=== PATIENT | female | born 1950 | race Caucasian/White ===

== ENCOUNTER 2017-09-22 15:00 | Inpatient (IN) | payer MEDICARE ==
[2017-09-22 14:01] VITALS: BMI 43.9
[2017-09-25] MEDS ORDERED: Sodium Chloride 0.9% 10 ML ONE (06:27)
[2017-09-25] MEDS ORDERED: Clindamycin/D5W 900 mg/50 ml Premix Bag ONE (06:30)
[2017-09-25] MEDS ORDERED: Levofloxacin 500 mg/D5W 100 ml Premix Bag ONE (06:30)
[2017-09-25 06:46] LABS: #Basophils 0.1 thou/uL (0.0-0.2); #Eosinphils 0.2 thou/uL (0.0-0.7); #Monocytes 0.7 thou/uL (0.11-0.59); #Neutrophils 3.7 thou/uL (1.40-6.50); %Basophils 1.1 % (0.0-1.0); %Eosinophils 2.1 % (0.0-10.0); %Lymphocytes 39.8 % (21.0-51.0); %Monocytes 8.6 % (0.0-10.0); Hematocrit 50.8 % (36.0-47.0); Mean Platelet Volume 7.4 fL (7.4-10.4); Red Blood Cell (RBC) Count 5.11 mill/uL (4.20-5.40); White Blood Cell (WBC) Count 7.5 thou/uL (4.8-10.8)
[2017-09-25 06:59] LABS: Anion Gap 12 mmol/L (10-20); BUN (Urea Nitrogen) 17 mg/dL (9.8-20.1); Calc. Creatinine Clearance 80 mL/min (70-130); Calcium 9.3 mg/dL (7.8-10.44); Carbon Dioxide 31 mmol/L (23-31); Chloride 101 mmol/L (98-107); Estimated GFR-MDRD 42
[2017-09-25] MEDS ORDERED: Fentanyl 250 MCG/5 ML VIAL ONE (07:18)
--- NOTE | 2017-09-25 08:30 | OP ---
DATE OF PROCEDURE: 09/25/2017 SURGEON: Erik Solis M.D. POLICE SERGEANT: Maximiliano Zhao PROCEDURES: Removal of hardware L5-S1, exploration, spinal fusion L5-S1, L4-5 laminectomy, posterola teral arthrodesis L4-S1, demineralized bone matrix, local morselized autograft, and pedicle screw ins trumentation L4-S1. DESCRIPTION OF PROCEDURE: The patient was brought into the operating room, intubated. She was froylan d in the prone position on gel-filled chest rolls. The previous incision was reopened and extended s uperiorly. We identified the prior hardware and removed the nuts and rods. The spinal fusion was ex plored. I could not confirm whether it was solid. We next placed pedicle screws at L4 bilaterally u sing lateral fluoroscopic guidance. A bridget was secured between L4, L5 and S1 bilaterally. A combinat ion of demineralized bone matrix and local morselized autograft was laid over the L4 through S1 omid ar and posterolateral surfaces for the purpose of arthrodesis. Vancomycin powder was applied and the wound was closed in anatomic layers.
[2017-09-25] MEDS ORDERED: Albuterol Sulfate 1.25 MG/3 ML NEB ONE ×2 (08:44)
[2017-09-25] MEDS ORDERED: Fentanyl 100 MCG/2 ML VIAL ONE (09:03)
[2017-09-25] MEDS ORDERED: FLU VACC TS2017-18 (>65YR) 0.5 ML SYRINGE IM ONE (10:45)
[2017-09-25] MEDS ORDERED: Albuterol Sulfate 1.25 MG/3 ML NEB NEB PRN (11:18)
[2017-09-25] MEDS ORDERED: Cyclobenzaprine 10 MG TAB PO PRN (11:19)
[2017-09-25] MEDS ORDERED: traMADol HCl 50 MG TAB PO PRN (11:21)
[2017-09-25] MEDS ORDERED: PROVENTIL INHALER 6.7 G (200 INHALATIONS) INH PRN (11:24)
[2017-09-25] MEDS ORDERED: HYDROcodone/Acetaminophen 10/325 mg Tablet PO PRN (11:30)
[2017-09-25] MEDS ORDERED: Milk Of Magnesia 30 ML UDCUP PO PRN (11:30)
[2017-09-25] MEDS ORDERED: tiZANidine HCl 4 MG TAB PO PRN (11:30)
[2017-09-25] MEDS ORDERED: Promethazine HCl 25 MG/ML VIAL IM PRN (11:30)
[2017-09-25] MEDS ORDERED: Promethazine 25 MG TAB PO PRN (11:30)
[2017-09-25] MEDS ORDERED: Mag-Al 1200 mg/1200 mg/30 ML UDCUP PO PRN (11:30)
[2017-09-25] MEDS ORDERED: Promethazine HCl 12.5 MG SUPP PR PRN (11:30)
[2017-09-25] MEDS ORDERED: Morphine 2 mg/2ml in 0.9% NaCl PF SYRINGE SLOW IVP PRN (11:31)
[2017-09-25] MEDS ORDERED: Morphine 4 MG/ML VIAL SLOW IVP PRN (11:32)
[2017-09-25] MEDS: Sodium Chloride 0.9% 1,000 ML IV SCH (11:47)
[2017-09-25] MEDS: HYDROcodone/Acetaminophen 10/325 mg Tablet PO PRN ×2 (11:54→16:33)
[2017-09-25] MEDS: Dicyclomine 20 MG TAB PO SCH ×3 (12:01→21:48)
[2017-09-25] MEDS: Ketorolac Tromethamine 30 MG/ML VIAL IVP SCH ×3 (12:01→23:25)
--- NOTE | 2017-09-25 13:49 | CON ---
DATE OF CONSULTATION: 09/25/2017 REASON FOR CONSULTATION: Medical management. HISTORY OF PRESENT ILLNESS: This is a 67-year-old female patient with a long history of chronic back pain, status post spinal fusion, laminectomy who presented with worsening back pain. She has been f ollowed by Dr. Whitehead for several months for management of her pain. He was suspicious for a fail ure of her effusion and was sent to Dr. Solis for evaluation and Dr. Solis felt like she needed a removal of hardware and revision of her fusion. She tolerated the procedure well as had an uneven tful postoperative period. PAST MEDICAL HISTORY: History of breast cancer, no chemo, status post mastectomy implants, history o f longstanding COPD followed by Dr. Carvajal, history of chronic pancreatitis which is stable, gastroeso phageal reflux disease, hyperlipidemia, past history of pulmonary embolism, colitis, fibromyalgia, re cently quit smoking. PAST SURGICAL HISTORY: History of back surgery x2 in 2010, most recently today with a revision of osmar mbar fusion, colonoscopy in 2008, EGD in 2008, hysterectomy in 1974, mastectomy with silicone implant s in 1979, implant removal with saline implant placement in 1995, cholecystectomy in 1995, thyroid bi opsy in 1999, cataract removal in 2013. MEDICATIONS: Include: 1. Protonix 40 mg p.r.n. 2. Klonopin 1 mg b.i.d. p.r.n. 3. Bentyl 20 mg p.r.n. irritable bowel. 4. Gabapentin 600 mg 1-2 t.i.d. p.r.n. 5. Ventolin inhaler p.r.n. 6. Synthroid 175 mcg daily. 7. Vitamin D daily. 8. Tramadol p.r.n. pain. 9. Zoloft 50 mg daily. 10. Prednisone p.r.n. 11. Spironolactone p.r.n. 12. Pulmicort inhaler. 13. Cyclobenzaprine 10 mg at bedtime p.r.n. pain. ALLERGIES: PENICILLIN, and CODEINE. FAMILY HISTORY: Father at 55 from melanoma. Mother with Alzheimer's dementia. Has sibling s positive for melanoma. SOCIAL HISTORY: She is with children. She quit smoking about 3-4 weeks ago after smoking fo r over 50 years. Rare alcohol use. No drug use. Lives at home with her and mother. REVIEW OF SYSTEMS: As per the history of present illness. General: She denies any recent fevers or chills. She states she feels much better since quitting smoking. HEENT: No headache, visual or he aring changes. Cardiac: Denies chest pain, shortness of breath or palpitations. Pulmonary: Denies cough or hemoptysis. She is feeling much better since she quit smoking. Gastrointestinal: Denies nausea, vomiting, abdominal pain, melena, hematochezia. Genitourinary: De nies dysuria or hematuria. Neurologic: No weakness, seizures, or syncope. PHYSICAL EXAMINATION: VITAL SIGNS: Temperature 97.6, pulse 87 and regular, respirations 20, blood pressure has remained st able per nursing. Pulse oximetry is 95% on 3 liters. GENERAL: She is awake and alert, in no acute distress. Speech is clear. NECK: Supple. Mucosa is moist. HEART: Regular rate and rhythm. LUNGS: Distant but no wheeze, rales or rhonchi. ABDOMEN: Obese, soft, nontender, nondistended. No hepatosplenomegaly. EXTREMITIES: No clubbing, cyanosis or edema. A 2+ peripheral pulses bilaterally. NEUROLOGIC: Cranial nerves II through XII are grossly intact. She moves all extremities. LABORATORY DATA: White blood cell count 7,500, hemoglobin and hematocrit are 16.1 and 50.8 with macr ocytic indices, platelets 238. Sodium 140, potassium 4.4, chloride 101, CO2 of 31, BUN and creatinin e are 17 and 1.27 with a GFR of 42, serum glucose 129, calcium 93. ASSESSMENT AND PLAN: This is a 67-year-old female with longstanding back pain status post lumbar fus ion and now status post removal of hardware from L5-S1, spinal fusion of L5-S1 and L4-L5 laminectomy, pedicle screw instrumentation from L4-S1. The patient tolerated well the postoperative plan as per Dr. Solis and his team. 1. Chronic obstructive pulmonary disease. We will continue albuterol nebs p.r.n. as well as albuter ol inhaler p.r.n. 2. Irritable bowel syndrome/fibromyalgia. We will continue dicyclomine and cyclobenzaprine p.r.n. 3. Chronic pain, stable on gabapentin. Pain medications per Neurosurgery team. 4. Hypothyroidism. We will continue thyroid replacement and monitor. 5. History of anxiety and depression, stable on sertraline.
[2017-09-25] MEDS: Clindamycin/D5W 900 MG in Premix Bag 1 BAG IVPB SCH ×2 (14:02→21:47)
[2017-09-25] MEDS: Gabapentin 300 MG CAP PO SCH ×2 (14:03→21:48)
[2017-09-25] MEDS ORDERED: Propofol 200 MG/20 ML VIAL ONE (15:35)
[2017-09-25] MEDS ORDERED: Ondansetron HCl/PF 4 MG/2 ML Vial ONE (15:35)
[2017-09-25] MEDS ORDERED: Glycopyrrolate 0.2 MG/ML 5 ML SYRINGE ONE (15:35)
[2017-09-25] MEDS ORDERED: Ketorolac Tromethamine 30 MG/ML VIAL ONE (15:35)
[2017-09-25] MEDS ORDERED: Dexamethasone 20 MG/5 ML VIAL ONE (15:35)
[2017-09-25] MEDS ORDERED: Lidocaine 1% PF 5 ML VIAL ONE (15:35)
[2017-09-25] MEDS ORDERED: BUPRENORPHINE 150 MCG FS SCH (21:00)
[2017-09-25] MEDS: Famotidine 20 MG TAB PO SCH (21:47)
[2017-09-26] MEDS: Sodium Chloride 0.9% 1,000 ML IV SCH (00:58)
[2017-09-26] MEDS ORDERED: Levothyroxine Sodium 50 MCG TAB PO SCH (06:00)
[2017-09-26] MEDS: Ketorolac Tromethamine 30 MG/ML VIAL IVP SCH (06:07)
[2017-09-26 08:17] VITALS: BP 119/50; TEMP 98.1
--- NOTE | 2017-09-26 08:41 | PRG ---
DATE OF SERVICE: 09/26/2017 Postop day #1, status post removal of lumbar hardware, spinal fusion of L5-S1, L4-L5 laminectomy SUBJECTIVE: The patient is feeling better. She had some episodes of low blood pressure last night w hich has improved. She is ambulating in the hallway, improved pain management. Denies chest pain, s hortness of breath or palpitations. OBJECTIVE: VITAL SIGNS: Temperature 97.9, pulse of 82, respirations 18, blood pressure 109/75, pulse ox is 92% on 2 liters. GENERAL: She is awake and alert, in no acute distress. Speech is clear. No conversational dyspnea. NECK: Supple. HEART: Regular rate and rhythm. LUNGS: Clear. Decreased breath sounds. No wheeze, rales or rhonchi. ABDOMEN: Obese, soft. EXTREMITIES: With no edema. LABORATORY DATA: Reviewed yesterday. ASSESSMENT AND PLAN: This is a 67-year-old female with longstanding back pain who is now status pos t lumbar surgical repair. She tolerated the surgery and postoperative period well. She is ambulatin g in the hallway. Per patient, she has been planning on to be discharged home today per Dr. Solis 's team. 1. Lumbar back pain status post back surgery. Further plan per Dr. Solis's team. 2. Chronic obstructive pulmonary disease. We will continue albuterol nebs and oral steroids. Will attempt to wean off the steroids as an outpatient now that she has quit smoking. 3. Irritable bowel syndrome/fibromyalgia. We will continue oral medicines. 4. Hypotension, possibly anesthesia effect, we will continue to monitor as an outpatient. Will hold her Lasix for low blood pressure readings. 5. Acute renal injury. We will recheck as an outpatient, increase her fluid intake. 6. Chronic back pain. Continue gabapentin. Follow up with Dr. Whitehead. 7. History of anxiety and depression is stable on her oral meds. DISPOSITION: I agree with discharge as per Surgery and will follow up as an outpatient.
[2017-09-26] MEDS ORDERED: Furosemide 40 MG TAB PO SCH ×2 (09:00)
[2017-09-26] MEDS ORDERED: predniSONE 20 MG TAB PO SCH (09:00)
[2017-09-26] MEDS: Dicyclomine 20 MG TAB PO SCH (09:17)
[2017-09-26] MEDS: Gabapentin 300 MG CAP PO SCH (09:18)
[2017-09-26] MEDS: Famotidine 20 MG TAB PO SCH (09:18)
--- NOTE | 2017-10-14 13:14 | EKG ---
Test Reason : PREOP Blood Pressure : / mmHG Vent. Rate : 081 BPM Atrial Rate : 081 BPM P-R Int : 138 ms QRS Dur : 086 ms QT Int : 384 ms P-R-T Axes : 057 090 071 degrees QTc Int : 446 ms Normal sinus rhythm Rightward axis Borderline ECG Confirmed by AARON REEDER MD ([id number] on 10/14/2017 1:14:09 PM Referred By: ZAIRA Confirmed By:AARON REEDER MD
== END 2017-09-26 11:30 | disposition home or self-care (01) | DRG 460 ==
LOC: SURG A 09-25 05:39 → SURG B 09-25 09:31
PROVIDERS: ADMIT Neurological Surgery; ATTEND Neurological Surgery
PROC: 0SG0071 Fusion of Lumbar Vertebral Joint with Autologous Tissue Substitute, Posterior Approach, Posterior Column, Open Approach (ICD-10-PCS; principal; 2017-09-25)
PROC: 0SG3071 Fusion of Lumbosacral Joint with Autologous Tissue Substitute, Posterior Approach, Posterior Column, Open Approach (ICD-10-PCS; 2017-09-25)
PROC: 0SP304Z Removal of Internal Fixation Device from Lumbosacral Joint, Open Approach (ICD-10-PCS; 2017-09-25)
DX: M43.16 Spondylolisthesis, lumbar region (principal); N17.9 Acute kidney failure, unspecified; M96.0 Pseudarthrosis after fusion or arthrodesis; Z68.41 Body mass index [BMI] 40.0-44.9, adult; J44.9 Chronic obstructive pulmonary disease, unspecified; K58.9 Irritable bowel syndrome, unspecified; M79.7 Fibromyalgia; I95.2 Hypotension due to drugs; T41.205A Adverse effect of unspecified general anesthetics, initial encounter; F41.9 Anxiety disorder, unspecified; F32.9 Major depressive disorder, single episode, unspecified; Z87.891 Personal history of nicotine dependence; K21.9 Gastro-esophageal reflux disease without esophagitis; E78.5 Hyperlipidemia, unspecified; Z86.711 Personal history of pulmonary embolism; E66.9 Obesity, unspecified
CPT/HCPCS: 36415; 76001; 80048; 85025; 93005; 93010; A4216; C1713; C1768; J1100; J1885; J1956; J2001; J2405; J2704; J3010; J3370; J3490; J7506; J7620

== ENCOUNTER 2017-10-03 14:51 | Emergency (ER) | payer MEDICARE ==
--- NOTE | 2017-10-03 15:49 | ULT ---
EXAM: LEFT LOWER EXTREMITY VENOUS ULTRASOUND WITH DOPPLER 10/03/17 HISTORY: Erythema. Swelling. Previous surgery. COMPARISON: 01/27/15. TECHNIQUE: Hernandez scale, color flow, doppler imaging with spectral waveform analysis performed in the left lower e xtremity venous system. FINDINGS: There is compressibility, presence of flow and augmentation in the common femoral vein, femoral vein, and popliteal vein. Flow in the greater saphenous vein, profunda vein, and posterior tibial vein. IMPRESSION: No evidence of thrombus in the left lower extremity deep venous system. POS: BOBO
[2017-10-03 16:10] LABS: #Eosinphils 0.2 thou/uL (0.0-0.7); #Lymphocytes 1.8 thou/uL (1.20-3.40); #Monocytes 0.9 thou/uL (0.11-0.59); #Neutrophils 4.6 thou/uL (1.40-6.50); %Basophils 0.3 % (0.0-1.0); %Eosinophils 2.4 % (0.0-10.0); %Lymphocytes 24.5 % (21.0-51.0); %Monocytes 11.8 % (0.0-10.0); Hematocrit 41.8 % (36.0-47.0); Mean Platelet Volume 7.3 fL (7.4-10.4); Red Blood Cell (RBC) Count 4.23 mill/uL (4.20-5.40); White Blood Cell (WBC) Count 7.5 thou/uL (4.8-10.8)
[2017-10-03 16:33] LABS: ALT (SGPT) 19 U/L (8-55); AST (SGOT) 23 U/L (5-34); Alkaline Phosphatase 59 U/L (40-150); Anion Gap 16 mmol/L (10-20); BUN (Urea Nitrogen) 14 mg/dL (9.8-20.1); Bilirubin, Total 0.8 mg/dL (0.2-1.2); Calc. Creatinine Clearance 0 mL/min (70-130); Calcium 9.1 mg/dL (7.8-10.44); Carbon Dioxide 31 mmol/L (23-31); Chloride 94 mmol/L (98-107); Estimated GFR-MDRD 52; Globulin 3.4 g/dL (2.4-3.5); Protein, Total 7.1 g/dL (6.0-8.3)
[2017-10-03] MEDS ORDERED: Ondansetron HCl/PF 4 MG/2 ML Vial ONE (17:11)
[2017-10-03] MEDS ORDERED: Morphine 4 MG/ML VIAL ONE (17:11)
== END 2017-10-03 19:28 | disposition home or self-care (01) ==
LOC: ERS 14:51
DX: L03.116 Cellulitis of left lower limb (principal); J44.9 Chronic obstructive pulmonary disease, unspecified; F41.9 Anxiety disorder, unspecified; F17.210 Nicotine dependence, cigarettes, uncomplicated
CPT/HCPCS: 36415; 80053; 85025; 85379; 96374; 96375; J2270; J2405

== ENCOUNTER 2017-10-09 16:10 | Inpatient (IN) | payer MEDICARE ==
[2017-10-09 17:43] LABS: #Eosinphils 0.3 thou/uL (0.0-0.7); #Lymphocytes 1.9 thou/uL (1.20-3.40); #Monocytes 0.7 thou/uL (0.11-0.59); #Neutrophils 3.5 thou/uL (1.40-6.50); %Basophils 0.7 % (0.0-1.0); %Eosinophils 4.4 % (0.0-10.0); %Lymphocytes 29.2 % (21.0-51.0); %Monocytes 11.3 % (0.0-10.0); %Neutrophils 54.3 % (42.0-75.0); Hemoglobin 12.9 g/dL (12.0-16.0); Mean Corpuscular HGB CONC 31.9 g/dL (32.0-36.0); Mean Corpuscular Hemoglobin 31.4 pg (27.0-31.0); Mean Corpuscular Volume 98.7 fl (81.0-99.0); Platelet Count 250 thou/uL (130-400); Red Blood Cell (RBC) Count 4.09 mill/uL (4.20-5.40); White Blood Cell (WBC) Count 6.4 thou/uL (4.8-10.8)
[2017-10-09] MEDS ORDERED: Clindamycin/D5W 900 MG in Premix Bag 1 BAG IVPB SCH (17:45)
[2017-10-09] MEDS ORDERED: Clindamycin/D5W 900 mg/50 ml Premix Bag ONE (17:47)
[2017-10-09 17:50] LABS: ALT (SGPT) 20 U/L (8-55); AST (SGOT) 27 U/L (5-34); Albumin 3.6 g/dL (3.4-4.8); Alkaline Phosphatase 62 U/L (40-150); Anion Gap 15 mmol/L (10-20); BUN (Urea Nitrogen) 19 mg/dL (9.8-20.1); Bilirubin, Total 0.5 mg/dL (0.2-1.2); Calc. Creatinine Clearance 0 mL/min (70-130); Carbon Dioxide 28 mmol/L (23-31); Chloride 100 mmol/L (98-107); Estimated GFR-MDRD 34; Globulin 2.8 g/dL (2.4-3.5); Glucose 107 mg/dL (80-115); Potassium 4.4 mmol/L (3.5-5.1); Protein, Total 6.4 g/dL (6.0-8.3); Sodium 139 mmol/L (136-145)
[2017-10-09 17:55] LABS: Bilirubin Negative (Negative); Blood, Urine Negative (Negative); Clarity CLEAR (Clear); Glucose, Urine (Dipstick) Negative (Negative); Leukocyte Negative (Negative); Nitrite Negative (Negative); Protein, Urine (Dipstick) Negative (Neg-Trace); Urobilinogen 0.2 mg/dL (0.2-1.0)
[2017-10-09] MEDS ORDERED: HYDROcodone/Acetaminophen 10/325 mg Tablet ONE (18:03)
--- NOTE | 2017-10-09 20:01 | ULT ---
LEFT LOWER EXTREMITY VENOUS DUPLEX ULTRASOUND INCLUDING COLOR AND SPECTRAL DOPPLER IMAGING: History: 67-year-old female with left lower extremity edema, pain, and redness. Comparison: 10-03-17 FINDINGS: Exam performed from groin to ankle including visualized greater saphenous, common femoral, superficia l femoral, profunda femoral, popliteal, trifurcation and posterior tibial vein regions. There is phas ic flow at all levels with normal compressibility and normal augmentation. No intraluminal thrombus. IMPRESSION: No evidence for deep venous thrombosis. POS: BOBO
[2017-10-09 20:47] VITALS: BMI 43.1
[2017-10-09] MEDS ORDERED: HYDROcodone/Acetaminophen 10/325 mg Tablet PO PRN (22:06)
[2017-10-09] MEDS ORDERED: Gabapentin 400 MG CAP PO SCH (22:15)
[2017-10-09] MEDS: Dextrose 5%-Lactated Ringers 1,000 ML IV SCH (22:32)
[2017-10-09] MEDS: clonazePAM 1 MG TAB PO PRN (22:44)
[2017-10-10] MEDS: Clindamycin/D5W 900 MG in Premix Bag 1 BAG IVPB SCH ×3 (03:02→17:58)
[2017-10-10 06:11] LABS: #Basophils 0.1 thou/uL (0.0-0.2); #Eosinphils 0.3 thou/uL (0.0-0.7); #Monocytes 0.7 thou/uL (0.11-0.59); #Neutrophils 2.8 thou/uL (1.40-6.50); %Basophils 0.9 % (0.0-1.0); %Eosinophils 4.4 % (0.0-10.0); %Lymphocytes 34.6 % (21.0-51.0); %Monocytes 11.8 % (0.0-10.0); %Neutrophils 48.2 % (42.0-75.0); Hemoglobin 12.5 g/dL (12.0-16.0); Mean Corpuscular HGB CONC 31.5 g/dL (32.0-36.0); Mean Corpuscular Hemoglobin 31.5 pg (27.0-31.0); Mean Corpuscular Volume 99.9 fl (81.0-99.0); Mean Platelet Volume 7.6 fL (7.4-10.4); Platelet Count 229 thou/uL (130-400); RBC Distribution Width 13.5 % (11.5-14.5); Red Blood Cell (RBC) Count 3.97 mill/uL (4.20-5.40); White Blood Cell (WBC) Count 5.9 thou/uL (4.8-10.8)
[2017-10-10] MEDS: Gabapentin 400 MG CAP PO SCH ×3 (06:20→21:44)
[2017-10-10] MEDS: Levothyroxine Sodium 175 MCG TAB PO SCH (06:20)
[2017-10-10 06:25] LABS: Anion Gap 14 mmol/L (10-20); BUN (Urea Nitrogen) 15 mg/dL (9.8-20.1); CRP (Inflammatory) 3.58 mg/dL (= or < 0.5); Calc. Creatinine Clearance 78 mL/min (70-130); Calcium 8.7 mg/dL (7.8-10.44); Carbon Dioxide 27 mmol/L (23-31); Chloride 101 mmol/L (98-107); Estimated GFR-MDRD 42; Glucose 113 mg/dL (80-115); Potassium 4.6 mmol/L (3.5-5.1); Sodium 137 mmol/L (136-145)
--- NOTE | 2017-10-10 06:36 | HP ---
DATE OF ADMISSION: 10/09/2017 CHIEF COMPLAINT: Left leg redness and worsening edema. HISTORY OF PRESENT ILLNESS: This is a 67-year-old female patient of Dr. Oc Villagomez, wh o has a known history of lymphedema and 2 weeks ago had an L4 laminectomy done here at the hospital a nd at that time had a small area of redness, may be a little scratch on the top of her left foot. Si nce that time the area had become more red and more swollen and she has had a couple of rounds of Candi trim as an outpatient. She has been to the emergency room twice for further evaluation. She saw Dr. Villagomez on Monday, this last week, and he told her if this got worse, she was to come back to the e mergency room, to be admitted. So, she came by today. Other workup today included an ultrasound ann t was negative for DVT. PAST MEDICAL HISTORY: Positive for history of breast cancer, she had a mastectomy, but no chemo or r adiation. Past history also includes COPD, GERD, hypertension, hyperlipidemia, PE in the past, histo ry IBS, fibromyalgia and also the spondylolisthesis, that was treated by surgery here a couple of wee ks ago. She has morbid obesity and hypothyroidism. PAST SURGICAL HISTORY: L4 laminectomy in 2 weeks ago, cataract in 2013, breast implant removal in , laparoscopic cholecystectomy in 1995, modified radical mastectomy in 1979 and also TAHBSO in 1974 . ALLERGIES: PENICILLIN and CODEINE. MEDICATIONS: Neurontin 1200 mg q.8 hours, which was max dose; Flexeril 10 mg daily p.r.n., but I thi nk she takes almost daily; [place] since the back surgery, she is on [place] 10 at least once a day; Zolo ft 50 mg daily; Protonix 40 mg daily. She gets spironolactone 25 mg daily, Xopenex nebs q.6 hours, P ulmicort inhalation 180 mg b.i.d. She is on oral vitamin D3 tablet, Synthroid 175 mcg daily, Bentyl p.r.n. for IBS flare. She also has p.r.n. clonidine for anxiety flare. FAMILY HISTORY: Father , had a melanoma. Mother is still alive and has Alzheimer's. She has a sibling that also has melanoma. SOCIAL HISTORY: She is , is retired. Has smoked since she was a teenager and states that she quit about 6 weeks ago, was tried many times in the past, currently on vap cigarette. Denies any il legal drug use history, drinks rarely. She currently lives with her spouse, her mother and her grand son. REVIEW OF SYSTEMS: She denies any headache, fevers or chills. Denies any changes in vision or chewi ng or swallowing and noted no problems with talking. Denies any chest pain, shortness of breath, hem optysis. No nausea, vomiting or hematemesis. No changes in bowel or bladder habits. No dysuria or hematuria. Denies any paresis or paresthesias. Denies any homicidal or suicidal ideations, auditory or visual hallucinations. PHYSICAL EXAMINATION: GENERAL: She is sitting up calmly in the bed and is very cooperative, no acute distress. VITAL SIGNS: Temperature is 97.6, pulse 87, respirations are 20, satting 88% on room air, blood pres sure is 122/74. HEENT: Shows normocephalic and atraumatic cranium with pupils that are equal, round, and reactive to light and accommodation. Extraocular movements are intact. Mucous membranes are moist. NECK: Supple, no JVD, no bruits, no thyromegaly. LUNGS: Distant sounding, but no rales, rhonchi or wheezes. HEART: S1, S2, with no rubs, murmurs, or gallops. ABDOMEN: Obese, very difficult exam to glean anything from it; it is nontender. GENITOURINARY: Deferred. EXTREMITIES: Left lower extremity with an obvious horizontal marked anterior line across the mid beryl f that is not completely circumferential, it is about 75% anteriorly. There is also obvious erythema and edema, which is about 2+ edema anteriorly, possibly the beginning of a small 2 cm bulla in the c enter of this patch of erythema. I did extend it down across her ankle and under her feet. The feet are darker color of red. The skin is dry and thickened. Pulses are 1+ to the left foot, 2+ in the right foot. There are no neuromuscular deficits. No sensation deficits. No motor deficits. NEUROLOGIC: She is alert and oriented x4. Cranial nerves II-XII are equal and symmetrical. LABORATORY AND X-RAY FINDINGS: White count 6.4, H&H are 12.9 and 40.4 respectively with 250,000 plat elets. D-dimer slightly elevated at 1.29. Sodium 139, potassium 4.4, chloride 100, bicarbonate 28, BUN 19, creatinine 1.5 with a GFR of 34, glucose of 107. ASSESSMENT AND PLAN: Cellulitis, currently unknown etiology, possible recent direct skin trauma that has gotten worse. She failed outpatient antibiotics. She also has evidently chronic renal insuffic iency. We will treat with antibiotics. We will also continue her nebs and her home medicines and we will follow accordingly. Hopefully, plan to discharge her home in a couple of days. Dr. Hernando montague assume care when he is back from being out of town.
[2017-10-10] MEDS: Spironolactone 25 MG TAB PO SCH (08:04)
[2017-10-10] MEDS: Dextrose 5%-Lactated Ringers 1,000 ML IV SCH ×2 (08:04→18:01)
[2017-10-10] MEDS: HYDROcodone/Acetaminophen 10/325 mg Tablet PO PRN (19:44)
[2017-10-10] MEDS: Cyclobenzaprine 10 MG TAB PO PRN (19:44)
[2017-10-10] MEDS: clonazePAM 1 MG TAB PO PRN (19:50)
[2017-10-10] MEDS: Mometasone Furoate 120 PUFF 220 MCG INH SCH (20:25)
[2017-10-11] MEDS: HYDROcodone/Acetaminophen 10/325 mg Tablet PO PRN ×3 (03:32→20:36)
[2017-10-11] MEDS: Clindamycin/D5W 900 MG in Premix Bag 1 BAG IVPB SCH ×2 (03:34→09:57)
[2017-10-11] MEDS: Gabapentin 400 MG CAP PO SCH ×3 (04:38→20:36)
[2017-10-11] MEDS: Cyclobenzaprine 10 MG TAB PO PRN ×2 (04:38→16:07)
[2017-10-11] MEDS: Levothyroxine Sodium 175 MCG TAB PO SCH (04:38)
[2017-10-11 05:02] LABS: #Eosinphils 0.2 thou/uL (0.0-0.7); #Lymphocytes 1.6 thou/uL (1.20-3.40); #Monocytes 0.5 thou/uL (0.11-0.59); #Neutrophils 5.1 thou/uL (1.40-6.50); %Basophils 0.4 % (0.0-1.0); %Eosinophils 3.1 % (0.0-10.0); %Lymphocytes 21.7 % (21.0-51.0); %Monocytes 7.1 % (0.0-10.0); %Neutrophils 67.7 % (42.0-75.0); Hemoglobin 12.6 g/dL (12.0-16.0); Mean Corpuscular HGB CONC 32.7 g/dL (32.0-36.0); Mean Corpuscular Hemoglobin 32.6 pg (27.0-31.0); Mean Corpuscular Volume 99.9 fl (81.0-99.0); Mean Platelet Volume 7.4 fL (7.4-10.4); Platelet Count 262 thou/uL (130-400); RBC Distribution Width 13.2 % (11.5-14.5); Red Blood Cell (RBC) Count 3.87 mill/uL (4.20-5.40); White Blood Cell (WBC) Count 7.5 thou/uL (4.8-10.8)
[2017-10-11 05:50] LABS: Anion Gap 11 mmol/L (10-20); BUN (Urea Nitrogen) 13 mg/dL (9.8-20.1); CRP (Inflammatory) 3.08 mg/dL (= or < 0.5); Calc. Creatinine Clearance 100 mL/min (70-130); Calcium 9.4 mg/dL (7.8-10.44); Carbon Dioxide 34 mmol/L (23-31); Chloride 100 mmol/L (98-107); Estimated GFR-MDRD 55; Glucose 109 mg/dL (80-115); Potassium 4.3 mmol/L (3.5-5.1); Sodium 141 mmol/L (136-145)
[2017-10-11] MEDS: Dextrose 5%-Lactated Ringers 1,000 ML IV SCH (06:02)
--- NOTE | 2017-10-11 08:01 | PRG ---
DATE OF SERVICE: 10/11/2017 SUBJECTIVE: The patient continues to have pain in both of her feet, continues to have swelling bilat erally. Venous Dopplers have been negative. She denies chest pain or shortness of breath, denies fe vers or chills. She had a poor night sleep last night due to her pain in both legs. OBJECTIVE: VITAL SIGNS: Temperature 97.8, pulse of 92, respirations 20, blood pressure 135/70, pulse ox is 96% on 2 liters. GENERAL: She is awake and alert, in no acute distress. Morbidly obese. NECK: Supple. HEART: Regular rate and rhythm. LUNGS: With decreased breath sounds, occasional wheeze, but no rales or rhonchi. ABDOMEN: Obese. EXTREMITIES: With 2-3+ edema bilaterally, definite demarcation of extreme redness on her left lower extremity to her mid-toledo and 1+ peripheral pulses bilaterally. LABORATORY DATA: White blood cell count 7,500, hemoglobin and hematocrit are 12.6 and 38.6, platelet s of 262. D-dimer on admission was elevated at 1.29. Sodium 141, potassium 4.3, chloride 100, CO2 o f 34, BUN and creatinine are 13 and 1.00 with a GFR of 55. C-reactive protein down to 3.08. Blood c ultures have been negative so far. Venous Doppler was negative. ASSESSMENT AND PLAN: This is a 67-year-old female patient with a history of chronic obstructive pulm onary disease, recently quit smoking, history of fibromyalgia [facility]. She failed outpatient therapy with both clindamycin and Bactrim. She has been started on vancomycin and IV clindamycin with minimal improvement so far, it appears t o be strep erysipelas. We will continue clindamycin and vancomycin at this time and consult Dr. Mohinder stauffer for evaluation and assistance with antibiotic choice. 1. Chronic obstructive pulmonary disease. We will continue her nebs and inhalants. 2. Fibromyalgia, chronic pain, stable at this time.
[2017-10-11] MEDS: Spironolactone 25 MG TAB PO SCH (08:12)
[2017-10-11] MEDS: Enoxaparin Sodium 40 MG/0.4 ML SYRINGE SC SCH (09:58)
[2017-10-11 11:28] LABS: Vancomycin, Trough 22.3 ug/mL
[2017-10-11] MEDS ORDERED: Vancomycin HCl 1.75 GM in Sodium Chloride 0.9% 500 ML IVPB SCH (12:00)
--- NOTE | 2017-10-11 12:11 | PQF ---
CLINICAL DOCUMENTATION IMPROVEMENT CLARIFICATION FORM: ICD-10 Updated PLEASE DO AN ADDENDUM TO THE PROGRESS NOTE WITH ANY DOCUMENTATION UPDATES OR ADDITIONS AND CARRY THROUGH TO DC SUMMARY. THANK YOU. DATE: 10/11/17 ATTN: Dr. Villagomez Please exercise your independent, professional judgment in responding to the clarification form. Clinical indicators are provided on the bottom of this form for your review Please check appropriate box(s): [ ] Acute Renal Failure (ARF) / Acute Kidney Injury (CRISTAL) (Please specify associated condition, if applicable) [ ] Other Etiology or underlying conditions related to the diagnosis of ARF/ CRISTAL: [ x ] Acute on Chronic Renal Failure please specify Stage of CKD ___III ( see below) [ ] CKD without ARF/CRISTAL please specify Stage of CKD [ ] Other diagnosis [ ] Unable to determine In addition, please specify: Present on Admission (POA): [ ] Yes [ ] No [ ] Unable to determine National Kidney Foundation Guidelines for CKD Staging Stage I Kidney damage with normal or increased GFR GFR > 90 Stage II Kidney damage with mildly decreased GFR GFR 60-89 Stage III Kidney damage with moderately decreased GFR GFR 30-59 Stage IV Kidney damage with severely decreased GFR GFR 16-29 Stage V Kidney failure GFR <15 ESRD End Stage Renal Disease On dialysis For continuity of documentation, please document condition throughout progress notes and discharge summary. Thank You. CLINICAL INDICATORS - SIGNS / SYMPTOMS / LABS 10/09 10/11 LAB: CREATININE 1.52 1.00 ESTIMATED GFR 34 55 RISKS: H&P: LEFT LEG REDNESS & WORSENING EDEMA. SHE ALSO HAS EVIDENTLY CHRONIC RENAL INSUFFICIENCY. TREATMENT: ORDER: 10/09 ALDACTONE 25MG PO Q AM ORDER: CMP 10/09, ORDER: BMP 10/10, 10/11, 10/12 Thank you, Dora (This form is maintained as a part of the permanent medical record) 2015 [employer]. All Rights Reserved Dora Schwab RN, BSN [email or web address] Office: [phone] [facility]
[2017-10-11] MEDS: cefTRIAXone\\ROCEPHIN 2 GM in Sodium Chloride 0.9% 100 ML IVPB SCH (16:07)
[2017-10-11] MEDS: Mometasone Furoate 120 PUFF 220 MCG INH SCH (19:44)
--- NOTE | 2017-10-11 19:55 | CON ---
DATE OF CONSULTATION: 10/11/2017 REASON FOR CONSULTATION: Cellulitis, leg. HISTORY OF PRESENT ILLNESS: A 67-year-old who has a history of breast cancer in remission, COPD, hyp ertension, venous insufficiency, lymphedema, a recent L4 laminectomy at [facility], who deve loped cellulitis of left leg. She is admitted for management and had some pain in the right side of the abdomen going towards the right lower quadrant earlier, but that has subsided and may have been a ssociated with falling from a chair before she was admitted. No headaches. No visual symptoms, sore throat, odynophagia, dysphagia. Mild dyspnea. Cough intermittently. No sputum production. No abd ominal pain anymore. No genitourinary symptoms. No joint symptoms. No neurological symptoms. PAST MEDICAL HISTORY: Breast cancer in remission after mastectomy in the 70s, COPD, GERD, hypertensi on, hyperlipidemia, pulmonary embolism, chronic low back pain/post laminectomy recently, obesity, hyp othyroidism, venous insufficiency with lymphedema of lower extremities. PAST SURGICAL HISTORY: Includes laparoscopic cholecystectomy and hysterectomy as well and modified r adical mastectomy. ALLERGIES: PENICILLIN when she was a child, does not recall the type of reaction. MEDICATIONS: Currently, she is receiving [place], DuoNeb, IV fluids, Klonopin, Flexeril, Lovenox, Neur ontin, vancomycin as well as clindamycin. SOCIAL HISTORY: , lives in a [place], quit smoking 6 weeks prior to admission. Drinks rarel y. PHYSICAL EXAMINATION: VITAL SIGNS: Temperature max 98.4, blood pressure 111/60, pulse 95, respirations 20-22, sat 94%-96%. SKIN: Shows the area of confluent circumferential erythema around the lower segment of the left leg, sparing the foot. The surgical site is healing well. Stitches have been removed. Peripheral IV ac cess. No [place] catheter. A little bit of lymphedema in the lower abdominal segments in the wall are a. No lymphadenopathy. HEENT: Ocular movements are conjugate. Oral cavity, few teeth remaining in the bottom maxilla with significant decay and gum disease, and she has artificial dentures in the upper maxilla. Oral cavity otherwise normal. NECK: Supple. No jugular venous distention. LUNGS: With some coarse breath sounds with few rhonchi in the bases. HEART: S1, S2, tachycardic. No S3, no murmurs. ABDOMEN: Distended and not tender except for the suprapubic area, the patient refers to some tendern ess. EXTREMITIES: No joint inflammatory activity. Pulses are 1+ in dorsalis pedis. There is lymphedema and stasis edema in the lower extremities and cellulitis as described above. She is able to move ext remities with limitations due to the acute illness. NEUROLOGIC: Her cognitive function appears to be intact. LABORATORY DATA: White cell count 7.5, hemoglobin 12.6, MCV 99, platelets 262 with a normal differen tial. Sodium 141, creatinine 1.0 which is improved from admission. Liver profile normal. Albumin 3 .6, urinalysis was essentially normal. Vancomycin trough 22.3. Microbiology with 2 sets of negative blood cultures and negative urine culture. Vascular ultrasound of lower extremity which showed no e vidence of DVT. ASSESSMENT: 1. Chronic smoking with chronic obstructive pulmonary disease. 2. Venous stasis with lymphedema. 3. Cellulitis of left leg. DISCUSSION: Most cases of cellulitis of lower extremity are secondary to beta hemolytic Streptococci , about 15% of those in the [facility] tend to be resistant to clindamycin. Some cases of gram ne gative bridget cellulitis have been seen in the past as well and Staphylococcus aureus usually when it is associated with abscess formation which is not the case here. Recommend discontinuation of vancomyc in and Cleocin, switch her to Rocephin. Her history for allergies is in the long distant past and I do not think that there is any significant likelihood of reaction to cephalosporin. The duration of therapy will depend on her clinical response, but eventually hopefully soon will be able to transitio n her to oral Keflex. She will need compression stockings or suppressive dose of penicillin VK 250 m g twice daily following the completion of the acute phase of treatment which should last around 10-14 days.
[2017-10-11] MEDS: clonazePAM 1 MG TAB PO PRN (20:39)
[2017-10-11] MEDS ORDERED: Morphine 4 MG/ML VIAL IV PRN (22:45)
[2017-10-11] MEDS ORDERED: Dexamethasone 4 mg/ml Vial IM SCH (23:00)
[2017-10-12 04:33] LABS: #Lymphocytes 0.8 thou/uL (1.20-3.40); #Monocytes 0.2 thou/uL (0.11-0.59); #Neutrophils 5.5 thou/uL (1.40-6.50); %Eosinophils 0.7 % (0.0-10.0); %Lymphocytes 12.5 % (21.0-51.0); %Monocytes 2.6 % (0.0-10.0); %Neutrophils 84.1 % (42.0-75.0); Hemoglobin 12.6 g/dL (12.0-16.0); Mean Corpuscular HGB CONC 31.7 g/dL (32.0-36.0); Mean Corpuscular Hemoglobin 31.8 pg (27.0-31.0); Mean Platelet Volume 7.1 fL (7.4-10.4); Platelet Count 220 thou/uL (130-400); RBC Distribution Width 13.1 % (11.5-14.5); Red Blood Cell (RBC) Count 3.98 mill/uL (4.20-5.40); White Blood Cell (WBC) Count 6.6 thou/uL (4.8-10.8)
[2017-10-12 04:42] LABS: Anion Gap 14 mmol/L (10-20); BUN (Urea Nitrogen) 15 mg/dL (9.8-20.1); CRP (Inflammatory) 9.43 mg/dL (= or < 0.5); Calc. Creatinine Clearance 96 mL/min (70-130); Calcium 8.8 mg/dL (7.8-10.44); Carbon Dioxide 26 mmol/L (23-31); Chloride 98 mmol/L (98-107); Estimated GFR-MDRD 53; Glucose 160 mg/dL (80-115); Potassium 6.1 mmol/L (3.5-5.1); Sodium 132 mmol/L (136-145)
[2017-10-12] MEDS: Levothyroxine Sodium 175 MCG TAB PO SCH (04:58)
[2017-10-12] MEDS: Gabapentin 400 MG CAP PO SCH ×3 (04:58→20:54)
[2017-10-12] MEDS ORDERED: Furosemide 40 MG TAB PO SCH (08:00)
--- NOTE | 2017-10-12 08:27 | PRG ---
DATE OF SERVICE: 10/12/2017 SUMMARY: The patient had improved pain with pain medications last night, was given a dose of morphine, appreciates evaluation by Neurosurgery, and had mary removed with little difficulty, appreciate evaluation by Dr. Avila, who adjusted her antibiotics. She is doing some better. Denies pain in her foot or leg. Denies fevers or chills. Denies nausea and vomiting. OBJECTIVE: VITAL SIGNS: Temperature 97.5, T-max of 98.8, pulse of 71, respirations 18, blood pressure 107/67, pulse ox 94% on 2 liters. GENERAL: She is awake, alert, in no acute distress. HEENT: Mucosa is moist. NECK: Supple. HEART: Regular rate and rhythm. LUNGS: Distant, but clear. No wheezes, rales, or rhonchi. ABDOMEN: Obese. EXTREMITIES: Continues to have sharply demarcated line of bright red erythema on the left [place] with 2-3+ edema bilaterally. LABORATORY DATA: White blood cell count 6,600, hemoglobin and hematocrit 12.6 and 39.9, platelets of 220. Sodium 132, potassium 6.1, chloride 98, CO2 of 26, BUN and creatinine 15 and 1.04 with a GFR of 53. C-reactive protein is up to 9.43 today, up from 3.0 yesterday. Blood cultures remain negative after 24 hours. ASSESSMENT AND PLAN: This is a 67-year-old female patient with a history of fibromyalgia, chronic obstructive pulmonary disease, morbid obesity, who was admitted for left lower leg cellulitis, failing outpatient oral antibiotics. 1. Cellulitis. We will continue Rocephin as per Dr. Avila and monitor for improvement. Once we see some improvement, we will switch to oral antibiotics as per Dr. Avila. 2. Chronic obstructive pulmonary disease is stable. 3. Fibromyalgia with chronic pain. We will decrease the dosage of the morphine as needed due to lethargy, but we will continue for breakthrough pain. 4. Hyperkalemia. Likely medication induced. Will stop the spironolactone and give one dose of Lasix. Follow in AM. 5. Disposition: Hopefully home in the next day or two, once there is some improvement in her infection. [facility]
[2017-10-12] MEDS: Enoxaparin Sodium 40 MG/0.4 ML SYRINGE SC SCH (08:41)
[2017-10-12] MEDS: Morphine 4 MG/ML VIAL IV PRN ×2 (14:34→20:59)
[2017-10-12] MEDS: cefTRIAXone\\ROCEPHIN 2 GM in Sodium Chloride 0.9% 100 ML IVPB SCH (15:42)
[2017-10-12] MEDS: HYDROcodone/Acetaminophen 10/325 mg Tablet PO PRN (17:32)
[2017-10-12] MEDS: Mometasone Furoate 120 PUFF 220 MCG INH SCH (20:43)
[2017-10-13] MEDS: HYDROcodone/Acetaminophen 10/325 mg Tablet PO PRN ×2 (01:36→10:22)
[2017-10-13] MEDS: Morphine 4 MG/ML VIAL IV PRN ×2 (02:47→08:49)
[2017-10-13] MEDS: Cyclobenzaprine 10 MG TAB PO PRN (04:42)
[2017-10-13 05:06] LABS: Anion Gap 16 mmol/L (10-20); BUN (Urea Nitrogen) 24 mg/dL (9.8-20.1); Calc. Creatinine Clearance 98 mL/min (70-130); Calcium 9.3 mg/dL (7.8-10.44); Carbon Dioxide 30 mmol/L (23-31); Chloride 97 mmol/L (98-107); Estimated GFR-MDRD 54; Glucose 122 mg/dL (80-115); Potassium 4.5 mmol/L (3.5-5.1); Sodium 138 mmol/L (136-145)
[2017-10-13] MEDS: Levothyroxine Sodium 175 MCG TAB PO SCH (06:10)
[2017-10-13] MEDS: Gabapentin 400 MG CAP PO SCH (06:10)
[2017-10-13 08:15] VITALS: BP 131/80; TEMP 97.5
[2017-10-13] MEDS: Enoxaparin Sodium 40 MG/0.4 ML SYRINGE SC SCH (08:44)
--- NOTE | 2017-10-13 08:57 | DIS ---
DATE OF ADMISSION: 10/09/2017 DATE OF DISCHARGE: 10/13/2017 ADMISSION DIAGNOSES: 1. Cellulitis, left leg, failed outpatient therapy. 2. Lymphedema. 3. Chronic pain. 4. Morbid obesity. DISCHARGE DIAGNOSES: 1. Cellulitis, left leg, failed outpatient therapy. 2. Lymphedema. 3. Chronic pain. 4. Morbid obesity. OTHER DIAGNOSES: Fibromyalgia, history of breast cancer, recent lumbar surgery. CONSULTATIONS: Dr. Avila for Infectious Disease. PROCEDURES: IV antibiotics. HOSPITAL COURSE: This is a 67-year-old female patient with a history of lymphedema, chronic back shlomo n, decreased mobility, presents to the emergency department after being on antibiotics for over a wee k for skin infection. She had been to the emergency department 2 times for evaluation with antibioti cs being changed as well as my office. She was seen in the ER. The ultrasound was negative for DVT. She was started on IV clindamycin with minimal improvement. Dr. Avila saw the patient for evaluati on and felt like it was a Strep erysipelas and started her on IV Rocephin. She had some improvement after 2 days on the Rocephin, is now being discharged home on p.o. Cefdinir. She was seen by Neurosu brian to have her postop mary removed. She continued to have back pain throughout her hospitaliza tion, but she does have close followup with pain management and Neurosurgery. DISCHARGE PHYSICAL EXAMINATION: VITAL SIGNS: Temperature 97.8, pulse 100, respirations 22, blood pressure 102/52, pulse ox 93% on ro om air. GENERAL: She is awake and alert, in no acute distress. Speech is clear. HEART: Regular rate and rhythm. LUNGS: Decreased, but no wheezes, rales, or rhonchi. EXTREMITIES: With decreased edema. Redness on her left lower leg is fading, not as bright redness. Decreased tenderness. DISCHARGE MEDICATIONS: Cefdinir 300 mg b.i.d., [place] 10/325 q.8 hours p.r.n. pain. Her gabapentin w ill be changed to Lyrica 150 t.i.d., clonazepam 1 mg daily p.r.n., tizanidine p.r.n. spasm, Synthroid 175 mcg daily, mometasone inhaler. FOLLOWUP INSTRUCTIONS: The patient to follow up in my office in 1-2 weeks, Dr. Avila in 2 weeks when she is done with her antibiotic treatment, and with Dr. Whitehead for pain management.
== END 2017-10-13 10:51 | disposition home or self-care (01) | DRG 603 ==
LOC: ERS 16:10 → T4-A 17:45
PROVIDERS: ADMIT Family Medicine; ATTEND Family Medicine
DX: L03.116 Cellulitis of left lower limb (principal); N17.9 Acute kidney failure, unspecified; E66.01 Morbid (severe) obesity due to excess calories; E87.5 Hyperkalemia; Z68.41 Body mass index [BMI] 40.0-44.9, adult; J44.9 Chronic obstructive pulmonary disease, unspecified; N18.3 Chronic kidney disease, stage 3 (moderate); I89.0 Lymphedema, not elsewhere classified; M79.7 Fibromyalgia; Z85.3 Personal history of malignant neoplasm of breast; Z86.711 Personal history of pulmonary embolism; Z90.49 Acquired absence of other specified parts of digestive tract; F17.290 Nicotine dependence, other tobacco product, uncomplicated; I12.9 Hypertensive chronic kidney disease with stage 1 through stage 4 chronic kidney disease, or unspecified chronic kidney disease; Z90.710 Acquired absence of both cervix and uterus; I87.8 Other specified disorders of veins; Z90.13 Acquired absence of bilateral breasts and nipples; K21.9 Gastro-esophageal reflux disease without esophagitis; E03.9 Hypothyroidism, unspecified
CPT/HCPCS: 36415; 80048; 80053; 80202; 81003; 85025; 85379; 86140; 87040; 87086; 94640; 96365; 96367; J0696; J1040; J1100; J1650; J2270; J3370; J3490; J7050; J7620

== ENCOUNTER 2017-11-01 15:03 | Outpatient (CLI) | payer MEDICARE ==
--- NOTE | 2017-11-01 15:27 | RAD ---
LUMBAR SPINE SERIES: Indication: Back pain. FINDINGS: There is metallic fusion spanning L4 through S1. There is decreased penetration due to body habitus w hich does limit sensitivity. Evaluation of alignment is, therefore, limited. A component of slight sp ondylolisthesis at L5-S1 is moderate. There is mild superior endplate height loss of L4. Frontal view suggests radiographic lucency about the left S1 pedicle screw. L4 pedicle screw transverses the supe rior endplate on the lateral projection. There is a prosthetic disc device at L5-S1. Incidental note of atherosclerosis. IMPRESSION: Post-operative lumbar spine. There is radiographic lucency suggested at the left S1 pedicle screw. Pe dicle screw of L4 traverses the superior endplate of the mildly compressed L4 vertebral body. POS: [facility]
== END 2017-11-01 15:04 | disposition home or self-care (01) ==
LOC: TBSIIMAG 15:03
PROVIDERS: ATTEND Physician Assistant
DX: M54.9 Dorsalgia, unspecified (principal)
CPT/HCPCS: 72100

== ENCOUNTER 2017-11-17 14:40 | Outpatient (CLI) | payer MEDICARE ==
[~2017-11-17 14:40] MED LIST: Gadobenate Dimeglumine 529 MG/1 ML (20ML VIAL) ONE
--- NOTE | 2017-11-17 16:11 | RAD ---
.LUMBAR SPINE TWO VIEW 11/17/17 HISTORY: M48.06, lumbar spine stenosis. COMPARISON: Lumbar spine radiographs 11/01/17. FINDINGS: The L4 screw tips abut the L4 superior end plate. The L5-S1 disc space is unchanged. No new acute fra cture or malalignment. Likely a prior ventral hernia repair per right upper quadrant surgical clips. IMPRESSION: 1. The L4 screws abut the superior L4 end plate. 2. No new acute fracture or malalignment. 3. No listhesis. POS: [facility]
--- NOTE | 2017-11-17 18:02 | MRI ---
MR OF THE LUMBAR SPINE WITH AND WITHOUT IV CONTRAST 11/17/17 INDICATION: History of low back surgery x2 with bilateral leg pain and difficulty standing and walking for long distances. TECHNIQUE: Multiplanar and multisequence MR images were obtained of the lumbar spine with and without IV contras t. Patient received 20 mL of Multihance for the examination. Due to patient discomfort, the patient could not tolerate performing the T1 sagittal postcontrast series for this exam. COMPARISON: Recent CT lumbar myelogram dated 07/04/17 and lumbar spinal radiographs dated 11/01/17 and 11/17/17. FINDINGS: As seen on the comparison examination, is postoperative changes consistent with L4 through S1 postero lateral interbody fusion. There are pedicle screws seen at L4, L5 and S1. Again seen is a superior end plate compression abnormality with associated sub end plate edema within the superior aspect of the L4 vertebra. There is a 4.9 x 7.9 x 2.5 cm fluid collection overlying the operative site of the L4 through S1 vert ebral level. There is some mild enhancement along the periphery of this fluid collection, possibly re lated to postoperative seroma or possibly developing phlegmon or abscess. There is stable grade I anterolisthesis of L5 on S1 and L4 on L5. Susceptibility artifact limits visu alization of the left neural foramina at L5-S1. The right neural foramina demonstrates just mild narr owing due to loss of disc space height in addition to the anterolisthesis. This appears similar to th e comparison study. At L4-5, there is no appreciable central canal or neural foraminal narrowing evident. At L3-4, there is no appreciable central canal or neural foraminal narrowing evident. At L2-3, there is mild facet joint degenerative change without appreciable central canal or neural fo raminal narrowing. At L1-2, there is no appreciable central canal or neural foraminal narrowing. At T12-L1, there is no appreciable central canal or neural foraminal narrowing demonstrated. No defin ite area of abnormal enhancement is seen within the spinal canal. Motion artifact heavily limits imag e detail on the postcontrast series. IMPRESSION: 1. Postsurgical change consistent with L4 through S1 interbody fusion. 2. Acute to subacute superior end plate compression abnormality of L4. 3. Peripheral enhancing fluid collection within the subcutaneous tissues overlying the operative site may reflect postoperative seroma, mature phlegmon or developing abscess. Recommend correlation with clinical exam for any symptoms and signs for infection near the operative site. The collection d oes abut the subcutaneous tissues on image 47 of series 9 of the postcontrast series. 4. Likely some residual mild right neural foraminal narrowing suspected at L5-S1. POS: [facility]
== END 2017-11-17 14:41 | disposition home or self-care (01) ==
LOC: TBSIIMAG 14:40
PROVIDERS: ATTEND Specialist
DX: M96.1 Postlaminectomy syndrome, not elsewhere classified (principal); G06.1 Intraspinal abscess and granuloma; Z98.1 Arthrodesis status
CPT/HCPCS: 72100; 72158; A9579

== ENCOUNTER 2017-11-28 13:11 | Outpatient (CLI) | payer MEDICARE ==
--- NOTE | 2017-11-28 15:01 | RAD ---
LUMBAR SPINE 2 VIEWS: HISTORY: Back pain. COMPARISON: Lumbar spine 11/17/17. FINDINGS: There is a fracture of the superior end plate of L4 with the pedicular screws extending to the superi or end plate. There is anterolisthesis of L4 over L5, similar. No new acute fracture is appreciated . There is a disk spacer at L5-S1 with unchanged anterior migration. IMPRESSION: Unchanged appearance of the L4 superior end plate compression deformity with the screws abutting the superior end plate. Anterolisthesis of L4 over L5 is similar. POS: [facility]
== END 2017-11-28 13:12 | disposition home or self-care (01) ==
LOC: TBSIIMAG 13:11
PROVIDERS: ATTEND Neurological Surgery
DX: M48.07 Spinal stenosis, lumbosacral region (principal); M43.16 Spondylolisthesis, lumbar region; Z98.1 Arthrodesis status
CPT/HCPCS: 72100

== ENCOUNTER 2018-02-02 10:58 | Outpatient (CLI) | payer MEDICARE | END 2018-02-02 10:59 | disposition home or self-care (01) | LOC: BICMRI 10:58 | PROVIDERS: ATTEND Nurse Practitioner Family | DX: M96.1 Postlaminectomy syndrome, not elsewhere classified (principal); M48.061 Spinal stenosis, lumbar region without neurogenic claudication; M99.83 Other biomechanical lesions of lumbar region; M99.84 Other biomechanical lesions of sacral region; Z98.1 Arthrodesis status | CPT/HCPCS: 72131 ==

== ENCOUNTER 2018-03-08 13:14 | Outpatient (CLI) | payer MEDICARE ==
--- NOTE | 2018-03-08 16:51 | MRI ---
LUMBAR SPINE MRI WITH AND WITHOUT CONTRAST: Date: 03/08/18 COMPARISON: 11/17/17. HISTORY: Previous lumbar fusion. Bilateral leg pain and numbness. TECHNIQUE: Lumbar spine MRI is performed with and without intravenous Gadolinium administration. Multisequential , multiplanar imaging is performed. FINDINGS: Bilateral transpedicular screws at L4, L5, and S1. Associated metallic susceptibility artifact. There is decreased edema involving the L4 level. There is persistent anterolisthesis of L4 upon L5, measur ing 6.0 mm (previously measuring 5.0 mm). Remainder of the lumbar spine has appropriate T1 marrow sig nal. Symmetric signal intensity of the psoas muscles. Visualized solid organs are unremarkable. Conus medullaris terminates at the mid L1 level. On the postcontrast images, no abnormal enhancement within the thecal sac, including the cauda equina and conus medullaris. Redemonstration of a T2 hyperintense collection posterior to the L4 and L5 vertebral body. This colle ction is predominantly confined to the subcutaneous fat and currently measures 2.9 cm anterior photographic intelligence officer ior x 1.4 cm mediolateral x 4.1 cm craniocaudal. Previously, this collection measured 3.3 x 2.5 x 7.9 cm. There has been interval decrease. On the postcontrast images, there is minimal and incomplete pe ripheral enhancement. T12-L1: Adequate disc hydration. No significant central canal stenosis or foraminal narrowing. L1-L2: Adequate disc hydration. No significant central canal stenosis or foraminal narrowing. L2-L3: Adequate disc hydration. No significant central canal stenosis. Neural foramina are patent. L3-L4: Adequate disc hydration. No significant central canal stenosis. Mild bilateral foraminal narrowing. L4-L5: Adequate disc hydration. No high grade central canal stenosis. Mild bilateral foraminal narrowing is suspected. Evaluation is limited by metallic susceptibility artifact. L5-S1: Disc prosthesis. There is a left laminectomy defect. No high grade central canal stenosis. No high gr lindsey foraminal narrowing. IMPRESSION: 1. Interval decrease in size of a presumed postoperative fluid collection in the midline dorsal subc utaneous fat. 2. Redemonstration of edema involving the L4 vertebral body, likely due to a resolving superior end plate compression fracture. 3. Postsurgical changes involving the lumbar spine as above. No high grade central canal stenosis or high grade foraminal narrowing. POS: [facility]
== END 2018-03-08 13:15 | disposition home or self-care (01) ==
LOC: TBSIIMAG 13:14
PROVIDERS: ATTEND Neurological Surgery
DX: M54.16 Radiculopathy, lumbar region (principal); R60.0 Localized edema; Z98.1 Arthrodesis status
CPT/HCPCS: 72158; 82565

== ENCOUNTER 2018-03-14 14:49 | Outpatient (CLI) | payer MEDICARE ==
--- NOTE | 2018-03-14 15:11 | RAD ---
LUMBAR SPINE TWO VIEWS: History: Collapsed vertebrae. Back pain. Post op follow up. Comparison: 11-28-17 FINDINGS/IMPRESSION: Pedicle screws and rods and transfix L4, L5 and S1. Interbody implant at L5-S1. Compression deformity at the L4 vertebra is stable from prior exam. The other lumbar vertebra maintain height and alignmen t. Degenerative osteophytes. Alignment is unchanged from prior exam with no interval change noted. POS: [facility]
== END 2018-03-14 14:50 | disposition home or self-care (01) ==
LOC: TBSIIMAG 14:49
PROVIDERS: ATTEND Neurological Surgery
DX: M48.56XA Collapsed vertebra, not elsewhere classified, lumbar region, initial encounter for fracture (principal); M43.8X6 Other specified deforming dorsopathies, lumbar region; M25.78 Osteophyte, vertebrae; Z98.1 Arthrodesis status
CPT/HCPCS: 72100

== ENCOUNTER 2018-03-26 13:38 | Outpatient (CLI) | payer MEDICARE ==
--- NOTE | 2018-03-26 15:28 | CT ---
LUMBAR SPINE CT: Date: 03-26-18 History: Radiculopathy, post laminectomy syndrome. Technique: Serial axial CT imaging obtained at 3 mm intervals from lower thoracic spine through lower sacrum without contrast. Coronal and sagittal reformatted imaging obtained. Comparison: CT myelogram of the lumbar spine performed 07-04-17. FINDINGS: Evaluation for central canal and/or neural foraminal stenosis is limited on routine CT exam. There is multifocal atherosclerotic calcification of the abdominal aorta and its branches. There is prominent degenerative change involving bilateral sacroiliac joints. Age indeterminate superior endplate fractures present at the L4 level with approximately 25% loss of vertebral body height centrally. This L4 fracture is new when compared to the 07-04-17 CT myelogram. T here are pedical screws present bilaterally at L4, L5 and S1, with vertically oriented interlocking r ods. The L4 pedicle screws are new when compared to the most recent prior examination. Of note, the a nterior most aspect of the L4 pedicle screw on the left extends into the subcortical bone at the junc tion of the vertebral body and the disc on the left, best seen on sagittal image 37 and coronal image 11. In addition, the right sided pedicle screw at L5 is located lateral to the right pedicle extending to the paraspinal soft tissue just to the right of the L5 vertebral body, similar when compared to prio r imaging. There is anterolisthesis of L4 on L5 measuring approximately 3-4 mm. T12-L1: No osseous cause of significant central canal or neural foraminal stenosis. L1-2: Mild anterior osteophyte formation and bilateral facet hypertrophy with no significant central canal or neural foraminal stenosis on the basis of an osseous cause. L2-3: No osseous cause of significant central canal or neural foraminal stenosis. Mild bilateral face t hypertrophy. L3-4: Bilateral facet hypertrophy with hypertrophy of ligamentum flavum noted. Mild disc bulge suspec rashid. At least mild central canal stenosis noted. No osseous cause of significant neural foraminal tom nosis. L4-5: Bilateral facet hypertrophy. No osseous cause of significant central canal or neural foraminal stenosis. L5-S1: Intervertebral disc device noted. There is facet hypertrophy bilaterally, right greater than l eft, with at least moderate right neural foraminal stenosis. Left sided hemilaminectomy noted. No worrisome lytic or blastic bone lesion. IMPRESSION: Multilevel post-operative and degenerative change noted within the lumbar spine as described above. T he findings include an age indeterminate, possibly acute, superior endplate fracture of the L4 verteb ral body with approximately 25% loss of vertebral body height centrally. In addition, the pedicle scr ew on the left at L4 extends into the inferior margin of the intervertebral disc. The right pedicle s crew at L5 is located superior and lateral to the pedicle anteriorly. POS: [facility]
--- NOTE | 2018-03-26 15:46 | RAD ---
LUMBAR SPINE THREE VIEWS INCLUDING FLEXION AND EXTENSION VIEWS: 03/26/2018 HISTORY: Lumbar radiculopathy. COMPARISON: 03/14/2018 FINDINGS: Again noted are post surgical changes related to posterior fusion of the L4-L5 and L5-S1 levels with bipedicular screws and posterior rods transfixing these levels. An intradiskal prosthesis at the lum bosacral junction is again present. No hardware complication is seen. A compression fracture at the superior endplate of the L4 vertebral body is again present and is similar to the prior exam. The l eft-sided pedicular screw extends to the level of the superior endplate compression fracture, but thi s is a stable finding. Remaining vertebral body heights are within normal limits. On flexion, there does appear to be trace anterolisthesis of L3 on L4, with normal alignment present one extension and with neutral positioning. Vascular calcification is seen in the abdominal aorta. IMPRESSION: 1. Stable post surgical changes, lower lumbar spine. 2. Stable compression fracture, superior endplate L4 vertebral body, with the left-sided pedicular s crew extending to the compression fracture of the vertebral body, and extends distal to the cortex. 3. Evidence of trace anterolisthesis of L3 on L4, which corrects with neutral positioning and with e xtension. POS: [facility]
== END 2018-03-26 13:39 | disposition home or self-care (01) ==
LOC: TBSIIMAG 13:38
PROVIDERS: ATTEND Neurological Surgery
DX: M47.26 Other spondylosis with radiculopathy, lumbar region (principal); S32.049D Unspecified fracture of fourth lumbar vertebra, subsequent encounter for fracture with routine healing; M96.1 Postlaminectomy syndrome, not elsewhere classified; Z98.890 Other specified postprocedural states
CPT/HCPCS: 72100; 72131

== ENCOUNTER 2018-05-09 16:29 | Emergency (ER) | payer MEDICARE ==
[2018-05-09 17:20] LABS: #Eosinphils 0.2 thou/uL (0.0-0.7); #Monocytes 0.5 thou/uL (0.11-0.59); #Neutrophils 3.7 thou/uL (1.40-6.50); %Basophils 0.6 % (0.0-1.0); %Eosinophils 3.3 % (0.0-10.0); %Lymphocytes 30.9 % (21.0-51.0); %Monocytes 8.1 % (0.0-10.0); %Neutrophils 57.1 % (42.0-75.0); Hemoglobin 14.4 g/dL (12.0-16.0); Mean Corpuscular HGB CONC 33.1 g/dL (32.0-36.0); Mean Corpuscular Hemoglobin 31.6 pg (27.0-31.0); Mean Corpuscular Volume 95.5 fL (78.0-98.0); Mean Platelet Volume 7.5 fL (7.4-10.4); Platelet Count 242 thou/uL (130-400); RBC Distribution Width 13.4 % (11.5-14.5); Red Blood Cell (RBC) Count 4.56 mill/uL (4.20-5.40); White Blood Cell (WBC) Count 6.4 thou/uL (4.8-10.8)
--- NOTE | 2018-05-09 17:31 | RAD ---
CHEST TWO VIEWS: 05/09/18 HISTORY: Cough. Shortness of breath. Symptoms x2 days. COMPARISON: 04/04/17. FINDINGS: Normal cardiac silhouette. The pulmonary vessels are prominent. There are diffuse interstitial opacit ies throughout the lung parenchyma. No consolidation or mass. Lungs are hyperinflated. No pleural eff usion. No pneumothorax or osseous abnormalities. IMPRESSION: 1. Hyperinflation. 2. Increased interstitial opacities which are presumed to be chronic. 3. COPD. POS: [facility]
[2018-05-09 17:44] LABS: ALT (SGPT) 10 U/L (8-55); AST (SGOT) 13 U/L (5-34); Albumin 3.9 g/dL (3.4-4.8); Alkaline Phosphatase 79 U/L (40-150); Anion Gap 11 mmol/L (10-20); BUN (Urea Nitrogen) 10 mg/dL (9.8-20.1); Bilirubin, Total 0.3 mg/dL (0.2-1.2); CK (CPK) 137 U/L (29-168); Calc. Creatinine Clearance 0 mL/min (70-130); Calcium 9.2 mg/dL (7.8-10.44); Carbon Dioxide 30 mmol/L (23-31); Chloride 101 mmol/L (98-107); Estimated GFR-MDRD 84; Globulin 3.3 g/dL (2.4-3.5); Glucose 94 mg/dL (80-115); Potassium 4.5 mmol/L (3.5-5.1); Protein, Total 7.2 g/dL (6.0-8.3); Sodium 137 mmol/L (136-145)
[2018-05-09 17:47] LABS: Troponin I Less than 0.010 ng/mL (< 0.028)
[2018-05-09] MEDS ORDERED: methylPREDNISolone Sod Succ/PF 125 MG/2 ML VIAL ONE (18:06)
--- NOTE | 2018-05-12 11:37 | EKG ---
Test Reason : Blood Pressure : / mmHG Vent. Rate : 090 BPM Atrial Rate : 090 BPM P-R Int : 130 ms QRS Dur : 130 ms QT Int : 396 ms P-R-T Axes : 075 114 060 degrees QTc Int : 484 ms Normal sinus rhythm Right bundle branch block Abnormal ECG Confirmed by JULEE CESAR DO ([id number]), magazine editor RUBA VALERIO ([id number]) on 05/12/2018 11:36:47 AM Referred By: Confirmed By:JULEE CESAR DO
== END 2018-05-09 19:22 | disposition home or self-care (01) ==
LOC: ERS 16:29
DX: J44.1 Chronic obstructive pulmonary disease with (acute) exacerbation (principal); F41.9 Anxiety disorder, unspecified; Z87.891 Personal history of nicotine dependence; Z79.899 Other long term (current) drug therapy
CPT/HCPCS: 36415; 71046; 80053; 82550; 82553; 83605; 84484; 85025; 87040; 93005; 94640; 96361; 96374; J2930; J7620

== ENCOUNTER 2018-05-31 12:19 | Outpatient (CLI) | payer MEDICARE ==
[2018-05-31] MEDS ORDERED: Iopamidol 300 61% 50 ML VIAL FS ONE (12:45)
[2018-05-31] MEDS ORDERED: EPINEPHrine 1 MG/ML AMP ONE (12:45)
[2018-05-31] MEDS ORDERED: Lidocaine 1% PF 10 ML AMP ONE (12:45)
[2018-05-31] MEDS ORDERED: Sodium Chloride 0.9% (PF) 10 ML VIAL ONE (12:45)
--- NOTE | 2018-05-31 14:33 | RAD ---
LEFT SHOULDER ATHROGRAM: History: Internal derangement. FINDINGS: After explaining the procedure and answering all questions, anterior aspect left shoulder was prepped and draped in the usual sterile fashion. Sterile technique, buffered local anesthesia, fluoroscopic guidance and an anterior approach were used to carefully advance a 22 gauge spinal needle to the join t capsule at the level of the humeral head. Approximately 10 cc of a liquid mixture containing normal saline, 1% Lidocaine, and iodinated contrast were instilled into the joint capsule under fluoroscopi c control. Needle was removed and spot images were obtained. Contrast remained within the joint capsu le. Patient tolerated the procedure well and was transferred to CT in good condition for further imag ing. IMPRESSION: Technically successful left shoulder arthrogram revealing no full thickness rotator cuff tear. Post a rthrogram CT is pending. POS: [facility]
--- NOTE | 2018-05-31 15:36 | CT ---
CT ARTHROGRAM LEFT SHOULDER 05/31/18 PROVIDED CLINICAL HISTORY: Left shoulder pain. FINDINGS: There is no evidence for fracture or other acute osseous abnormality. the visualized left lung demons trates paraseptal emphysematous change and probable bronchiectatic change at the left upper lobe. Acr omioclavicular joint osteoarthrosis is mild and without significant mass effect upon the subjacent bell praspinatus. There is no contrast material within the subacromial subdeltoid bursa to suggest a full thickness rot ator cuff tear. The glenoid labrum and glenohumeral articular cartilage is suboptimally evaluated by CT but demonstrate an unremarkable CT arthrographic appearance. There is minimal increased density seen within the posterior distal supraspinatus tendon expected loc ation on the sagittal reconstruction which is equivocal for minimal low grade undersurface partial th ickness tearing. IMPRESSION: 1. No evidence for full thickness rotator cuff tear. 2. Acromioclavicular joint osteoarthrosis. POS: [facility]
== END 2018-05-31 12:20 | disposition home or self-care (01) ==
LOC: RAD 12:19
PROVIDERS: ATTEND Orthopaedic Surgery
DX: M25.512 Pain in left shoulder (principal); M19.012 Primary osteoarthritis, left shoulder
CPT/HCPCS: 23350; J0171

== ENCOUNTER 2018-07-12 14:55 | Outpatient (CLI) | payer MEDICARE ==
--- NOTE | 2018-07-12 16:04 | RAD ---
LUMBAR SPINE RADIOGRAPHS TWO VIEWS: Date: 07-12-18 Provided Clinical History: Back pain. FINDINGS: Comparison is made with the study dated 03-26-18. Bilateral pedicle screws and vertical interconnecting rods are again noted spanning L4 through S1. L5 -S1 intervertebral disc device again seen. No evidence for hardware loosening or migration. Compressi on deformity involving the superior endplate of L4 with medial discal aspects of the L4 pedicle screw s approximately the L4 vertebral body endplate again noted. Lumbar alignment appears unchanged. Verte bral body heights appear otherwise preserved. IMPRESSION: Stable exam. POS: [facility]
== END 2018-07-12 14:56 | disposition home or self-care (01) ==
LOC: TBSIIMAG 14:55
PROVIDERS: ATTEND Neurological Surgery
DX: M54.9 Dorsalgia, unspecified (principal)
CPT/HCPCS: 72100

== ENCOUNTER 2018-12-07 13:42 | Outpatient (CLI) | payer MEDICARE | END 2018-12-07 13:43 | disposition home or self-care (01) | LOC: ULT 13:42 | PROVIDERS: ATTEND Family Medicine | DX: R06.01 Orthopnea (principal); I08.1 Rheumatic disorders of both mitral and tricuspid valves | CPT/HCPCS: 36415; 80053; 80061; 82306; 83036; 84436; 84443; 85025; 93306 ==

== ENCOUNTER 2019-01-30 09:18 | Outpatient (CLI) | payer MEDICARE ==
--- NOTE | 2019-01-30 09:57 | RAD ---
2 VIEW CHEST: Date: 01/30/19 COMPARISON: 11/08/18. FINDINGS: There is a generalized interstitial prominence of each lung with persistent hyperinflation. Cardiomed iastinal silhouette remains enlarged. There is thoracic kyphosis and osseous demineralization. IMPRESSION: 1. COPD. 2. Enlarged cardiomediastinal silhouette and pulmonary vasculature with interstitial prominence bila terally, which may be on the basis of CHF and edema. Superimposed interstitial lung disease may also be present. Correlate for patient's fluid status. POS: [facility]
== END 2019-01-30 09:19 | disposition home or self-care (01) ==
LOC: RAD 09:18
PROVIDERS: ATTEND Internal Medicine Critical Care Medicine
DX: R06.00 Dyspnea, unspecified (principal); J44.9 Chronic obstructive pulmonary disease, unspecified; I51.7 Cardiomegaly
CPT/HCPCS: 71046

== ENCOUNTER 2019-03-05 11:31 | Inpatient (IN) | payer MEDICARE ==
[2019-03-05] MEDS ORDERED: Ondansetron PF 4 MG/2 ML Vial ONE (11:54)
[2019-03-05 12:15] LABS: #Lymphocytes 1.3 thou/uL (1.20-3.40); #Monocytes 1.3 thou/uL (0.11-0.59); #Neutrophils 8.3 thou/uL (1.40-6.50); %Basophils 0.3 % (0.0-1.0); %Eosinophils 0.3 % (0.0-10.0); %Lymphocytes 12.1 % (21.0-51.0); %Neutrophils 75.4 % (42.0-75.0); Hemoglobin 17.6 g/dL (12.0-16.0); Mean Corpuscular HGB CONC 32.2 g/dL (32.0-36.0); Mean Corpuscular Hemoglobin 30.7 pg (27.0-31.0); Mean Corpuscular Volume 95.3 fL (78.0-98.0); Mean Platelet Volume 8.1 fL (7.4-10.4); Platelet Count 278 thou/uL (130-400); Red Blood Cell (RBC) Count 5.73 mill/uL (4.20-5.40)
[2019-03-05 12:41] LABS: ALT (SGPT) 25 U/L (8-55); AST (SGOT) 27 U/L (5-34); Albumin 4.3 g/dL (3.4-4.8); Alkaline Phosphatase 82 U/L (40-150); BUN (Urea Nitrogen) 54 mg/dL (9.8-20.1); Calc. Creatinine Clearance 0 mL/min (70-130); Calcium 10.2 mg/dL (7.8-10.44); Estimated GFR-MDRD 23; Glucose 130 mg/dL (80-115); Lipase 9 U/L (8-78); Protein, Total 8.3 g/dL (6.0-8.3)
[2019-03-05 12:44] LABS: Chloride 77 mmol/L (98-107); Potassium 4.6 mmol/L (3.5-5.1); Sodium 131 mmol/L (136-145)
--- NOTE | 2019-03-05 13:20 | CT ---
CT abdomen and pelvis noncontrast HISTORY: Flank pain. COMPARISON: 04/04/2017. FINDINGS: Each renal collecting system, ureter, and urinary bladder are decompressed without stone ap parent. Lack of contrast limits evaluation for other abnormalities. Calcification throughout the arterial str uctures. Gallbladder surgically absent. Scarring at the lung bases. Small hiatal hernia. Degenerative and postoperative changes lumbar spine. Postoperative changes anterior abdominal wall. D ilated fluid and gas-filled loops of small bowel measuring up to 4.0 cm. Abrupt transition to completely decompressed bowel in the central abdomen. Small amount of gas and stool within the colon. Visualization of material within the distal portion of the dilated small bowel. IMPRESSION: No CT evidence of urinary tract obstruction or calcification. High-grade mid to distal small bowel obstruction at the central abdomen. Presumed adhesion. Atherosclerosis. Chronic-type findings are stable.
[2019-03-05 13:30] LABS: Anion Gap 25 mmol/L (10-20); Carbon Dioxide 35 mmol/L (23-31)
[2019-03-05] MEDS ORDERED: Lidocaine Viscous Sol 2% 15 ml UD Cup ONE (14:01)
[2019-03-05] MEDS ORDERED: Benzocaine 20% Spray 60 ML CAN ONE (14:02)
[2019-03-05] MEDS ORDERED: Morphine 4 MG/ML VIAL ONE (14:54)
--- NOTE | 2019-03-05 15:09 | RAD ---
PORTABLE CHEST: Date: 03/05/19 INDICATION: Vomiting. COMPARISON: 01/30/19. FINDINGS: Increasing opacity in the left lung base since prior exam. Findings suggest left effusion with left b asilar atelectasis and infiltrate. Vascular and interstitial markings remain prominent, which may rep resent mild congestion. IMPRESSION: Increasing infiltrate and/or atelectasis in the left lung base when compared to recent exam. POS: [facility]
--- NOTE | 2019-03-05 16:34 | RAD ---
Abdomen one view HISTORY: Nasogastric tube placement. FINDINGS: Dilated gas-filled loops within the upper abdomen are consistent with small bowel obstructi on detailed on recent CT. Nasogastric tube is faintly seen. Distal tip is at the level of the gastric fundus. Proximal sidehole at the GE junction. Please consider advancing the tube approximately 10 cm for better positioning.
[2019-03-05] MEDS ORDERED: Ondansetron PF 4 MG/2 ML Vial IVP PRN (17:08)
[2019-03-05] MEDS ORDERED: Lorazepam 2 MG/ML VIAL SLOW IVP PRN ×2 (17:08)
[2019-03-05] MEDS ORDERED: Sodium Chloride 0.9% 1,000 ML IV SCH ×2 (17:08→23:45)
[2019-03-05] MEDS ORDERED: hydrALAZINE 20 MG/ML VIAL SLOW IVP PRN (17:08)
[2019-03-05] MEDS ORDERED: Morphine 4 MG/ML VIAL SLOW IVP PRN (17:08)
[2019-03-05 17:25] VITALS: BMI 36.3
[2019-03-05] MEDS ORDERED: Morphine 2 MG/ML SYRINGE SLOW IVP PRN (17:30)
[2019-03-05] MEDS: Sodium Chloride 0.9% 1,000 ML IV SCH ×2 (18:16→20:39)
[2019-03-05] MEDS: Enoxaparin Sodium 40 MG/0.4 ML SYRINGE SC SCH (20:38)
--- NOTE | 2019-03-05 23:23 | HP ---
HISTORY OF PRESENT ILLNESS: This is a 68-year-old female from [place]. She smokes a pack a day. She has had multiple abdominal operations. Today, is Monday, beginning she started having abdominal pain, nausea, vomiting, abdominal distention. She has not had a bowel movement in the last 6 days. She presented to the hospital and her sodium was 131, BUN 54, creatinine 2.11, previously has been normal at last check 12/07/2018, CO2 was 35. White count was 11 and hemoglobin 17.6, markedly hemoconcentrated, last hemoglobin checked 14.4 on 12/07/2018. CAT scan of the abdomen and pelvis obtained revealing distended proximal small bowel , decompressed distal small bowel, transition point suggestive of high-grade small-bowel obstruction. She has small hiatal hernia. Bowel loops dilated up to 4 cm. The patient has had an NG tube placed to 50 cm and is filled one 3 L canister and the other one is about 300 mL of feculent material. The patient reports normal bowel function prior. ALLERGIES: CODEINE, PENICILLIN, MUSHROOMS. SOCIAL HISTORY: Tobacco pack a day, alcohol none. MEDICATIONS: At home, Zanaflex 4 mg q.i.d. p.r.n., Klonopin q.24 hours p.r.n. 1 mg, Zantac 150 b.i.d., Ventolin inhaler two puffs q.6 hours p.r.n., Zoloft 50 mg daily, Lyrica 150 mg t.i.d., Asmanex twist inhaler one puff , levothyroxine 50 mcg a day. She has Synthroid listed at 175 mcg a day. DuoNeb at bedtime, hydrocodone p.r.n. pain q.6 hours 10, dicyclomine 20 mg q.i.d., Flexeril 10 mg at bedtime p.r.n., cefdinir 300 mg b.i.d., Belbuca 150 mg b.i.d., aspirin 81 mg a day. PAST SURGICAL HISTORY: She has had a laparoscopic cholecystectomy. She has had an appendectomy. She has had 2 C sections. She reports a total hysterectomy. She has had lumbar surgery and has chronic back pain. On 05/30/2007, she had laparoscopic adhesiolysis, free intestinal adhesions with laparoscopic application preperitoneal proceed 15 x 20 cm mesh covering 3 hernia defects, periumbilical incisional hernias. On 01/04/2011, Dr. Solis performed L5-S1 laminectomy, diskectomy, foraminotomy, arthrodesis, pedicle screw L5-S1. On 09/25/2017, Dr. Solis performed removal L5-S1 hardware, spinal fusion L5-S1, L4-L5, pedicle screw instrumentation L4, L5 , S1. Bilateral mastectomies for breast cancer 1 side(can't recall which) REVIEW OF SYSTEMS: Ten-point noncontributory. No history of cardiac disease or interventions. Echocardiogram 12/07/2018, 60% to 65% EF, normal diastolic dysfunction, mildly dilated left atrium, mild mitral and tricuspid regurgitation. PHYSICAL EXAMINATION: VITAL SIGNS: Blood pressure 120/70, heart rate 82, respiratory rate 18. HEAD EARS, EYES, NOSE AND THROAT: Unremarkable. LUNGS: Few rhonchi and no wheezing. CARDIAC: Regular rate and rhythm. ABDOMEN: Soft, obese. Bowel sounds present. No evident hernias. EXTREMITIES: Unremarkable. LABORATORY DATA: As noted above. White count 11 and hemoglobin 17.6. Sodium 131, potassium 4.6. Liver function tests normal. ASSESSMENT AND PLAN: 1. Bowel obstruction. Abdominal x-ray to check NG tube placement. Continue NG tube suction, n.p.o. except for ice chips. We will plan to check her abdominal x- rays tomorrow pending clinical course. She may need intervention based on high output NG tube placement and radiological findings. We will await repeat abdominal x- rays and clinical course and make that assessment tomorrow. Laparoscopic approach could be undertaken. 2. Chronic obstructive pulmonary disease. 3. Ongoing tobacco abuse. 4. Chronic back pain. 5. Neuropathy secondary to above. 6. Hypothyroidism treated medically. 7. Anxiety. Job ID: [id number] [facility]
[2019-03-05] MEDS ORDERED: Acetaminophen 1,000 MG in Premix Bag 1 BAG IVPB PRN (23:34)
[2019-03-05] MEDS ORDERED: diphenhydrAMINE 50 MG/ML VIAL IVP PRN (23:34)
[2019-03-06 05:01] LABS: #Lymphocytes 1.6 thou/uL (1.20-3.40); #Neutrophils 4.5 thou/uL (1.40-6.50); %Basophils 0.3 % (0.0-1.0); %Eosinophils 0.5 % (0.0-10.0); %Lymphocytes 22.2 % (21.0-51.0); %Monocytes 13.6 % (0.0-10.0); %Neutrophils 63.4 % (42.0-75.0); Hemoglobin 15.3 g/dL (12.0-16.0); Mean Corpuscular HGB CONC 32.1 g/dL (32.0-36.0); Mean Corpuscular Hemoglobin 31.2 pg (27.0-31.0); Mean Corpuscular Volume 97.2 fL (78.0-98.0); Mean Platelet Volume 8.4 fL (7.4-10.4); Platelet Count 236 thou/uL (130-400); RBC Distribution Width 12.9 % (11.5-14.5); Red Blood Cell (RBC) Count 4.89 mill/uL (4.20-5.40); White Blood Cell (WBC) Count 7.1 thou/uL (4.8-10.8)
[2019-03-06] MEDS: Sodium Chloride 0.9% 1,000 ML IV SCH ×2 (05:12→18:24)
[2019-03-06 05:26] LABS: ALT (SGPT) 19 U/L (8-55); AST (SGOT) 23 U/L (5-34); Albumin 3.4 g/dL (3.4-4.8); Alkaline Phosphatase 57 U/L (40-150); BUN (Urea Nitrogen) 50 mg/dL (9.8-20.1); Bilirubin, Total 0.7 mg/dL (0.2-1.2); Calc. Creatinine Clearance 59 mL/min (70-130); Calcium 8.5 mg/dL (7.8-10.44); Carbon Dioxide Greater than 37 mmol/L (23-31); Chloride 84 mmol/L (98-107); Estimated GFR-MDRD 37; Glucose 88 mg/dL (80-115); Potassium 4.2 mmol/L (3.5-5.1); Protein, Total 6.4 g/dL (6.0-8.3); Sodium 139 mmol/L (136-145)
--- NOTE | 2019-03-06 09:16 | RAD ---
EXAM: XR Abdomen 2 View/1 View Cxr PROVIDED CLINICAL HISTORY: Follow up small bowel obstruction COMPARISON: 03/05/2019. FINDINGS: Pleural and parenchymal changes are seen at each lung base overall stable on the left third but has d eveloped in the interim on the right. This may may be related to bibasilar atelectasis and probable tiny pleural effusions. The cardiac silhouette is stable in size. There is mild nonspecific increase in interstitial densities bilaterally. Vascular calcifications are seen in the thoracic aorta. Degenerative changes noted in thoracic spine. Nasogastric tube is noted in place with tip overlying the left upper quadrant in the expected locatio n of the proximal body of the stomach. Multiple dilated loops of small bowel are seen with associated differential air-fluid levels suggesting partial small bowel obstruction. Multiple ringlik e metallic densities again overlie the abdomen likely due to mesh material in the anterior abdomen. Postsurgical changes lower lumbar spine are again seen. Surgical clips again overlie the right upper quadrant. No other interval change. IMPRESSION: 1. Evidence for small bowel obstruction. 2. Bibasilar pleural and parenchymal lung changes which may be related to bilateral tiny pleural effu sions and associated atelectasis. However, developing infiltrate at either lung base cannot be excluded. Continued follow-up is recommended.
--- NOTE | 2019-03-06 09:36 | PRG ---
DATE OF SERVICE: 03/06/2019 SUBJECTIVE: Graciela Garcia, 68-year-old female. Ms. Garcia is doing well. She had had 1300 mL of nasogastric output into the late evening, but the last 4 to 6 hours, has hardly had any. Nurses have irrigated the tube without any results. The patient reports having had a bowel movement and passing flatus. She reports her abdomen is baseline, protuberant, and normal in size. OBJECTIVE: VITAL SIGNS: Temperature 97.8, heart rate 92, respiratory rate 18, blood pressure 100/66. Recorded gastric output overnight is 700, although nurses report 1300 last night. Her urine output is 500 mL. LUNGS: Clear to auscultation with exploratory wheezing and rhonchi. CARDIAC: Regular rate and rhythm. ABDOMEN: Soft, protuberant, obese. Mild tympany. No guarding. EXTREMITIES: Unremarkable. LABORATORY DATA: White count 7, hemoglobin 15. Sodium 139, potassium 4.2, chloride 84, carbon dioxide greater than 37, BUN 50, creatinine 1.41, GFR 37 improved. ASSESSMENT/PLAN: 1. Small bowel obstruction. She has passed flatus and has had a small bowel movement. We will obtain a small bowel follow through this morning as well as plain abdominal x-rays, make further decisions pending Gastrografin small bowel follow through and clinical course. 2. Acute kidney injury, improved with hydration. 3. Severe dehydration. 4. Chronic obstructive pulmonary disease. Pulmonary consult pending. Job ID: [id number]
--- NOTE | 2019-03-06 14:27 | RAD ---
EXAM: XR Small Bowel STANDARD PROVIDED CLINICAL HISTORY: Small bowel obstruction. COMPARISON: Acute abdominal series on 03/06/2019. FINDINGS: Gastrografin was administered via patient's nasogastric tube. Tip of the nasogastric tube is noted in the body of the stomach. There is a diverticulum involving the second portion of the duodenum. There is dilatation of multiple loops of small bowel. After 4 hours and 25 minutes, there is nonvisua lization of the colon without significant progression in contrast through small bowel compared to the 2 hour and 15 minute image. Findings are suggestive of high-grade partial small bowel obstruction . Tiny densities overlie the midline likely due to mesh material. Post surgical changes lumbar spine ar e seen. Surgical clips overlie the right upper quadrant. IMPRESSION: Evidence of high-grade partial small bowel obstruction. Findings were discussed with Dr. Galvin on at 1401 hours.
[2019-03-06] MEDS ORDERED: PHENYLEPHRINE-NS 100 MCG/ML 10 ML SYRINGE ONE (15:04)
[2019-03-06] MEDS ORDERED: ePHEDrine 50 MG/ML VIAL ONE (15:04)
[2019-03-06] MEDS ORDERED: Rocuronium Bromide 10 MG/ML (10ML VIAL) ONE (15:04)
[2019-03-06] MEDS ORDERED: Glycopyrrolate 0.2 MG/ML 5 ML SYRINGE ONE (15:04)
[2019-03-06] MEDS ORDERED: PROPOFOL 200 MG/20 ML VIAL ONE (15:04)
[2019-03-06] MEDS ORDERED: Lidocaine 1% PF 5 ML VIAL ONE (15:04)
[2019-03-06] MEDS ORDERED: Succinylcholine Chloride 20 MG/ML 10 ml SYRINGE FS ONE (15:04)
[2019-03-06] MEDS ORDERED: Acetaminophen 1,000 MG in Premix Bag 1 BAG IVPB SCH (17:15)
[2019-03-06] MEDS ORDERED: Ketorolac Tromethamine 30 MG/ML VIAL IVP SCH (17:15)
[2019-03-06] MEDS ORDERED: MEROPENEM 1 GM/50 ML 1 GM in Premix Bag 1 BAG IVPB SCH (17:15)
--- NOTE | 2019-03-06 17:17 | PRG ---
DATE OF SERVICE: 03/06/2019 SUBJECTIVE: Ms. Garcia had a small bowel follow through today. This has not had any progression after 4 to 5 hours. She has had more than 2 L of emesis. NG tube placed back to suction. The procedure terminated. PLAN: Plan is for diagnostic laparoscopy, possible laparotomy for a bowel obstruction. She understands risks and benefits. Questions answered. Job ID: [id number]
[2019-03-06] MEDS: Pantoprazole 40 MG VIAL IVP SCH (18:24)
[2019-03-06] MEDS ORDERED: Bupivacaine HCl 0.5%/Epinephrine 1:200,000/PF 30 ml Vial ONE (18:46)
--- NOTE | 2019-03-06 18:51 | CON ---
DATE OF CONSULTATION: 03/06/2019 HISTORY OF PRESENT ILLNESS: Graciela Garcia is a very pleasant 68-year-old female , who presented yesterday to Dr. Galvin after presenting to the emergency room with complaints of abdominal discomfort, nausea, vomiting, and a lack of bowel movements. She has an NG tube placed. Her thinks she looks better than she looked yesterday, but she says she does not feel any better. There is approximately 500 mL of very dark brown fluid in her wall suction connected to her NG tube. She is currently clamped and having serial films for small-bowel follow-through. PAST MEDICAL HISTORY: Remarkable for, 1. Significant chronic obstructive pulmonary disease with ongoing tobacco use. 2. History of chronic back pain. 3. History of lumbar spine surgery. 4. History of hysterectomy. 5. History of two C-sections. 6. History of lysis of adhesions in 2006. 7. History of herniorrhaphy with mesh. 8. History of L5-S1 laminectomy, diskectomy, foraminotomy, arthrodesis, and pedicle screw at L5-S1. 9. History of removal of that hardware in September 2017 and spinal fusion. 10. History of bilateral mastectomies with unilateral breast cancer. FAMILY HISTORY: Negative for lung disease in early age. SOCIAL HISTORY: She is still smoking, not a daily drinker. ALLERGIES: SHE REPORTS ALLERGIES TO CODEINE AND PENICILLIN. REVIEW OF SYSTEMS: A 10-point review of systems completed, is remarkable only for abdominal discomfort. She denies shortness of breath at this time. She is lying flat in bed and has an NG tube in place. She is in no distress. PHYSICAL EXAMINATION: VITAL SIGNS: She is afebrile, heart rate is 92, respiratory rate is 18, oximetry is 92% on 3 L, and blood pressure is 100/66. HEENT: Pupils are equal. Sclerae are anicteric. NECK: Supple. No lymphadenopathy. Trachea is midline. LUNGS: Clear. HEART: Regular rhythm. S1 and S2 are distant. No murmurs heard. ABDOMEN: Massively distended and tympanitic. She has very rare bowel sounds. EXTREMITIES: Without clubbing, cyanosis, or edema. NEUROLOGIC: Grossly nonfocal. LABORATORY DATA: White count 7.1, hemoglobin 15.3, and platelets 236. Sodium 139, potassium 4.2, chloride 84, bicarb was 35 yesterday and greater than 37 today, BUN 50, and creatinine 1.41, which is improved from 2.11 yesterday. IMPRESSION: 1. Bowel obstruction. 2. Chronic obstructive pulmonary disease, not with an exacerbation. 3. Intravascular volume depletion that is improved with a 2.5-liter positive fluid balance. 4. Acute on chronic kidney disease. 5. Obesity. 6. Deconditioning. PLAN: Per General Surgery. We will be happy to follow the other physicians caring for Ms. Garcia. TIME SPENT: This is a 50-minute consult, with greater than 50% of the time was spent on the unit coordinating care. Job ID: [id number] MTDD
[2019-03-06] MEDS ORDERED: Fentanyl 100 MCG/2 ML VIAL ONE (21:02)
[2019-03-06] MEDS ORDERED: Promethazine HCl 25 MG/ML VIAL SLOW IVP PRN (23:04)
[2019-03-06] MEDS ORDERED: Promethazine HCl 25 MG/ML VIAL IM PRN (23:04)
[2019-03-06] MEDS ORDERED: PACU-Morphine 4MG/ML VIAL SLOW IVP PRN (23:04)
[2019-03-06] MEDS ORDERED: Albuterol Sulfate 1.25 MG/3 ML NEB ONE (23:07)
--- NOTE | 2019-03-06 23:08 | RAD ---
AP view chest. HISTORY: Respiratory distress and chest pain. AP view chest demonstrates EKG leads seen over the chest. A left subclavian central line is in place. Nasogastric tube is in place. Extensive pulmonary vascular congestion seen. Some blunting of left costophrenic angle seen. IMPRESSION: Pulmonary vascular congestion.
[2019-03-07] MEDS: Sodium Chloride 0.9% 1,000 ML IV SCH ×3 (00:06→10:12)
[2019-03-07] MEDS: Enoxaparin Sodium 40 MG/0.4 ML SYRINGE SC SCH ×2 (00:06→20:28)
--- NOTE | 2019-03-07 05:04 | OP ---
DATE OF PROCEDURE: 03/06/2019 PREOPERATIVE DIAGNOSES: Small-bowel obstruction, morbid obesity, chronic obstructive pulmonary disease, tobacco abuse, multiple prior operations. POSTOPERATIVE DIAGNOSES: Small-bowel obstruction, morbid obesity, chronic obstructive pulmonary disease, tobacco abuse, multiple prior operations. PROCEDURES PERFORMED: Laparoscopic video adhesiolysis. Left subclavian vein central line. ANESTHESIA: General with local 0.5% Marcaine with epinephrine. FINDINGS: The patient had dilated small bowel. She had extensive adhesions. Laparoscopically, I was able to appreciate what appeared to be the offending adhesion as there was a constrictive band. This was taken down laparoscopically and released and other adhesions were taken down to some extent, but not entirely. It was felt that due to the patient's comorbidities with her acute kidney injury and dehydration and other morbidities listed above, it will be best to stop as further adhesiolysis would require laparotomy. DESCRIPTION OF PROCEDURE: The patient was taken to the operating room where under general anesthesia, [place] catheter was placed and then a left central line was placed. Left upper clavicular area was prepared with ChloraPrep and draped in routine fashion. Seldinger technique was used to place a left subclavian vein central line, removing the J-wire and securing it with 3-0 nylon suture. Biopatch sterile dressing applied. Each port aspirated blood. Flushed with saline solution. Abdomen was prepared with ChloraPrep and draped in routine fashion. Left lateral subcostal incision was made. Pneumoperitoneum to 15 mmHg obtained with a Veress needle, replaced with a 5 port, laparoscope inserted. Left lateral abdomen was free of adhesions. Mid lateral left and left lower quadrant lateral incisions were made and 5 port was placed under laparoscopic visualization. Laparoscopic adhesiolysis was carried out freeing the omentum from the anterior abdominal wall of the pelvis. There was omental adhesion bridging to the small bowel, a segment taken down with the LigaSure. There was a more offending adhesion constricting the small bowel severely. With proximal dilatation, this was carefully taken down laparoscopically. There were more extensive adhesions, taken down to some degree, but further adhesiolysis would require an open operation and due to her comorbidities, it was felt that as I had identified what appeared to be offending adhesion, further adhesiolysis will not be undertaken and laparoscopy was terminated and pneumoperitoneum reduced. All instruments were removed and all skin incisions were approximated with interrupted subdermal 4-0 Monocryl and Dover glue applied. Job ID: [id number]
[2019-03-07 05:56] LABS: Band 10 % (5-11); Hemoglobin 14.5 g/dL (12.0-16.0); Lymphocytes 6 % (21-51); MDiff Complete? YES; Mean Corpuscular HGB CONC 31.2 g/dL (32.0-36.0); Mean Corpuscular Hemoglobin 30.7 pg (27.0-31.0); Mean Corpuscular Volume 98.1 fL (78.0-98.0); Mean Platelet Volume 8.3 fL (7.4-10.4); Monocytes 3 % (0-10); Neutrophil 81 % (42-75); Platelet Count 217 thou/uL (130-400); Platelet Morphology Comment Appears Adequate; RBC Distribution Width 12.8 % (11.5-14.5); RBC Morphology Normal; Red Blood Cell (RBC) Count 4.72 mill/uL (4.20-5.40); White Blood Cell (WBC) Count 9.2 thou/uL (4.8-10.8)
[2019-03-07 05:59] LABS: ALT (SGPT) 17 U/L (8-55); AST (SGOT) 19 U/L (5-34); Albumin 3.4 g/dL (3.4-4.8); Alkaline Phosphatase 55 U/L (40-150); BUN (Urea Nitrogen) 53 mg/dL (9.8-20.1); Bilirubin, Total 0.4 mg/dL (0.2-1.2); Calc. Creatinine Clearance 61 mL/min (70-130); Calcium 8.3 mg/dL (7.8-10.44); Estimated GFR-MDRD 39; Globulin 2.7 g/dL (2.4-3.5); Glucose 85 mg/dL (80-115); Protein, Total 6.1 g/dL (6.0-8.3)
[2019-03-07 06:10] LABS: Anion Gap 23 mmol/L (10-20); Chloride 79 mmol/L (98-107); Sodium 143 mmol/L (136-145)
[2019-03-07 06:14] LABS: Carbon Dioxide 44 mmol/L (23-31); Potassium 2.7 mmol/L (3.5-5.1)
[2019-03-07 09:05] LABS: Actual Bicarbonate (HCO3a) 48.8 mEq/L (22-28); Base Excess (BEa) 22.4 mEq/L (-2.0 to +3.0); Calcium, Ionized 0.94 mmol/L (1.12-1.30); Carboxyhemoglobin (COHb) 1.7 gm% (0.0-3.0); Hemoglobin (Hb) 14.9 g/dL (12.0-16.0); Potassium - ABG Lab 2.75 mmol/L (3.70-5.30)
[2019-03-07 09:08] LABS: O2 Tension (PaO2) 56.6 mmHg (> 80.0); Puncture Site LBA; pH, Arterial 7.55 (7.35-7.45)
[2019-03-07] MEDS: Pantoprazole 40 MG VIAL IVP SCH (10:00)
[2019-03-07] MEDS ORDERED: Potassium Chloride 40 MEQ in Lactated Ringer's 1,000 ML IV SCH (10:30)
[2019-03-07] MEDS ORDERED: Potassium Chloride 40 MEQ in Sodium Chloride 0.9% 250 ML 250 ML IVPB SCH (10:30)
--- NOTE | 2019-03-07 10:48 | RAD ---
Exam: Chest one view, abdomen 2 views: HISTORY: Follow-up small bowel obstruction COMPARISON: 03/06/2019 FINDINGS: NG tube and left central lines in place. Increased linear and interstitial markings bilaterally with probable small pleural effusions. No confluent pneumonia. Previously given contrast media has progressed through abnormally dilated small bowel loops into the colon evidence for partial small bowel obstruction. No free intraperitoneal air. There appears to be less distention of the small bowel loops and on the prior study. IMPRESSION: Evidence for partial small bowel obstruction with contrast media extending through the abnormally dil ated small bowel in the colon with less small bowel distention than on the prior study.
[2019-03-07] MEDS ORDERED: Acetaminophen 500 MG TAB PO PRN (14:07)
[2019-03-07] MEDS ORDERED: traMADol HCl 50 MG TAB PO PRN ×2 (14:07)
[2019-03-07] MEDS ORDERED: tiZANidine HCl 4 MG TAB PO PRN (14:08)
[2019-03-07] MEDS ORDERED: Acetaminophen 325 MG TAB PO PRN (14:29)
[2019-03-07] MEDS ORDERED: Lorazepam 1 MG TAB PO PRN (15:00)
[2019-03-07] MEDS ORDERED: acetaZOLAMIDE Sodium 500 mg Vial IVP SCH (16:00)
--- NOTE | 2019-03-07 16:13 | PRG ---
DATE OF SERVICE: 03/07/2019 SUBJECTIVE: She had lysis of adhesions last night. She says she feels 100% better. Her abdominal girth is decreased by about 30% in my opinion. OBJECTIVE: VITAL SIGNS: She is afebrile. Heart rates in the 80s, respiratory rates in the teens, oximetry is 94-97% today with a cannula at 3-4 L. Her intake and output is -5300. She had 3900 mL of gastric drainage yesterday. She has had 800 mL so far today. LUNGS: She actually has mild wheezes on exam today. HEART: Regular rhythm. ABDOMEN: Soft and nontender. LABORATORY DATA: White count 9.2, hemoglobin 14.5, platelets 217. She has 10% bands on her smear. Sodium 143, potassium 2.7, chloride 79, bicarb 44, BUN 33, creatinine 1.35, pH 755, CO2 is 57, PO2 56. IMPRESSION: 1. Chronic obstructive pulmonary disease with mild bronchospasm. We are changing her nebulizers to q.4 hours. 2. Mixed alkalosis. Her nasogastric suction probably has led to contraction alkalosis combined with removal of gastric acid. 3. We will try Diamox which should help avoid hypoventilation with her alkalosis. Give her one dose of 500 mg. 4. We will increase her nebulizer treatments to q.4 while awake. I would like to avoid steroids just from an abdominal wound healing standpoint. We will add budesonide to her nebulized treatments twice a day. Job ID: [id number]
[2019-03-07] MEDS ORDERED: Sterile Water 10 ML VIAL FS PRN (16:33)
[2019-03-07] MEDS: Potassium Chloride 40 MEQ in Lactated Ringer's 1,000 ML IV SCH (16:46)
[2019-03-07] MEDS: Gabapentin 300 MG CAP PO SCH ×2 (16:48→20:28)
[2019-03-07 16:54] LABS: BUN (Urea Nitrogen) 38 mg/dL (9.8-20.1); Calc. Creatinine Clearance 76 mL/min (70-130); Calcium 8.7 mg/dL (7.8-10.44); Estimated GFR-MDRD 50; Glucose 92 mg/dL (80-115)
[2019-03-07] MEDS ORDERED: PROVENTIL INHALER 6.7 G (200 INHALATIONS) INH PRN (17:00)
[2019-03-07 17:08] LABS: Chloride 80 mmol/L (98-107); Sodium 141 mmol/L (136-145)
[2019-03-07 17:11] LABS: Anion Gap 22 mmol/L (10-20)
[2019-03-07 17:17] LABS: Carbon Dioxide 43 mmol/L (23-31)
[2019-03-07] MEDS: guaiFENesin ER 600 MG TAB PO SCH (20:29)
[2019-03-07] MEDS: Budesonide 0.5 MG/2 ML NEB NEB SCH (20:37)
--- NOTE | 2019-03-07 20:47 | HP ---
HISTORY OF PRESENT ILLNESS: Ms. Garcia is doing well today. She has had multiple bowel movements. She feels better. Her preoperative pain is resolved after her laparoscopy, adhesiolysis. OBJECTIVE: VITAL SIGNS: Temperature 98.1 degrees, heart rate 84, blood pressure 122/71. NG tube output remains high and she is consuming copious amounts of chips. 3.9 L NG tube output since yesterday, 1300 mL reported by nursing since her surgery last night. Urine output is acceptable 350 mL clear urine. LUNGS: Clear to auscultation. CARDIAC: Rhythm regular without murmur or gallop. ABDOMEN: Obese, soft, nontender. Laparoscopic wounds, left abdomen well healed. Mild tympany, upper abdomen. The patient reports this is her baseline abdominal protuberance. LABORATORY DATA: White count 9, hemoglobin 14.5. Sodium 143, potassium 2.7, carbon dioxide 44, BUN 53, creatinine 1.35. ASSESSMENT/PLAN: 1. Small bowel obstruction, status post laparoscopic adhesion. Avoiding extensive adhesiolysis and open operation due to the operative findings and reassured by her morbid obesity, chronic obstructive pulmonary disease. Continue tobacco abuse. Apparently, her GI function appears to be resuming. Contrary to her high NG output, she has evidence of bowel function with bowel movements, passing flatus. An x-ray this morning reveals the contrast she consumed has passed the small bowel is in the colon. We will remove her NG tube, initiate her diet, decrease her IV fluids and remove her [place]. If she does well, could plan on discharge home tomorrow. 2. Hypokalemia, replaced. 3. Tobacco abuse, encourage cessation. Job ID: [id number]
[2019-03-07] MEDS ORDERED: Dicyclomine 10 MG CAP PO SCH (21:00)
[2019-03-07] MEDS ORDERED: traZODone HCl 50 MG TAB PO SCH (21:00)
[2019-03-08] MEDS: Potassium Chloride 40 MEQ in Lactated Ringer's 1,000 ML IV SCH ×2 (02:03→10:33)
[2019-03-08 06:44] LABS: #Basophils 0.1 thou/uL (0.0-0.2); #Eosinphils 0.1 thou/uL (0.0-0.7); #Lymphocytes 1.4 thou/uL (1.20-3.40); #Monocytes 0.8 thou/uL (0.11-0.59); #Neutrophils 6.1 thou/uL (1.40-6.50); %Basophils 0.8 % (0.0-1.0); %Eosinophils 1.1 % (0.0-10.0); %Lymphocytes 16.7 % (21.0-51.0); %Monocytes 9.1 % (0.0-10.0); %Neutrophils 72.3 % (42.0-75.0); Hemoglobin 13.9 g/dL (12.0-16.0); Mean Corpuscular HGB CONC 32.5 g/dL (32.0-36.0); Mean Corpuscular Hemoglobin 31.7 pg (27.0-31.0); Mean Corpuscular Volume 97.5 fL (78.0-98.0); Platelet Count 193 thou/uL (130-400); RBC Distribution Width 12.8 % (11.5-14.5); Red Blood Cell (RBC) Count 4.38 mill/uL (4.20-5.40); White Blood Cell (WBC) Count 8.5 thou/uL (4.8-10.8)
[2019-03-08] MEDS: Budesonide 0.5 MG/2 ML NEB NEB SCH (06:48)
[2019-03-08 07:09] LABS: ALT (SGPT) 15 U/L (8-55); AST (SGOT) 19 U/L (5-34); Albumin 3.4 g/dL (3.4-4.8); Alkaline Phosphatase 53 U/L (40-150); BUN (Urea Nitrogen) 21 mg/dL (9.8-20.1); Bilirubin, Total 0.5 mg/dL (0.2-1.2); Calc. Creatinine Clearance 96 mL/min (70-130); Calcium 8.7 mg/dL (7.8-10.44); Estimated GFR-MDRD 66; Globulin 2.8 g/dL (2.4-3.5); Glucose 120 mg/dL (80-115); Protein, Total 6.2 g/dL (6.0-8.3)
[2019-03-08 07:16] LABS: Potassium 2.9 mmol/L (3.5-5.1)
[2019-03-08 07:18] LABS: Anion Gap 16 mmol/L (10-20); Carbon Dioxide 33 mmol/L (23-31); Chloride 90 mmol/L (98-107); Sodium 136 mmol/L (136-145)
[2019-03-08] MEDS ORDERED: Polyethylene Glycol 3350 17 GM Packet PO SCH ×2 (09:00)
[2019-03-08] MEDS ORDERED: Potassium Chloride 20 MEQ TAB PO SCH (09:00)
[2019-03-08] MEDS: Gabapentin 300 MG CAP PO SCH (10:25)
[2019-03-08] MEDS: guaiFENesin ER 600 MG TAB PO SCH (10:25)
[2019-03-08 11:17] VITALS: BP 106/64; TEMP 98.4
--- NOTE | 2019-03-08 11:57 | PRG ---
DATE OF SERVICE: 03/08/2019 SUBJECTIVE: Graciela Garcia says she feels great. OBJECTIVE: VITAL SIGNS: Her vital signs have been stable. She is afebrile. Heart rate 69, respiratory rate 18, oximetry is 93, and blood pressure 106/94. She is on 3 L a minute oxygen. LUNGS: Completely clear. HEART: Regular rhythm. ABDOMEN: Soft and nontender. LABORATORY DATA: White count 8.5, hemoglobin 13.9, and platelets 193,000. Sodium 136, potassium 2.9, chloride 90, bicarb 33 and it was 43 yesterday, BUN 21, and creatinine 0.86. IMPRESSION: 1. Status post laparoscopy for bowel obstruction. 2. Advanced chronic obstructive pulmonary disease. 3. Metabolic alkalosis secondary to bowel obstruction and prolonged nasogastric suction, resolved with one dose of Diamox. 4. Bronchospasm that is resolved with more frequent nebulizer treatments. 5. Obesity. 6. History of breast cancer. 7. History of spine surgery. 8. History of cellulitis leading to hospitalization in 2017. PLAN: We will continue with supportive care. From a Pulmonary standpoint, she appears to be stable. She is more hypoxic than her baseline, but I suspect this is left over atelectasis from her prolonged hemidiaphragm elevation and her bowel obstruction. Job ID: [id number]
--- NOTE | 2019-03-08 15:55 | PQF ---
CLINICAL DOCUMENTATION IMPROVEMENT CLARIFICATION FORM: ICD-10 Updated PLEASE DO AN ADDENDUM TO THE PROGRESS NOTE WITH ANY DOCUMENTATION UPDATES OR ADDITIONS AND CARRY THROUGH TO DC SUMMARY. THANK YOU. DATE: 03/08/2019 ATTN: Dr. Galvin Please exercise your independent, professional judgment in responding to the clarification form. Clinical indicators are provided on the bottom of this form for your review Please check appropriate box(s): [ ] Acute Respiratory Failure: [ ] with Hypoxia [ ] with Hypercapnia [ ] Acute On Chronic Respiratory Failure: [ ] with Hypoxia [ ] with Hypercapnia [ ] Acute Respiratory Failure due to: (etiology) [ ] Other diagnosis _COPD,Chronic hypoxia with mild acute v exacerbation [ ] Unable to determine In addition, please specify: Present on Admission (POA): [ yes] Yes [ ] No [ ] Unable to determine For continuity of documentation, please document condition throughout progress notes and discharge summary. Thank You. CLINICAL INDICATORS - SIGNS / SYMPTOMS / LABS ER RECORD: VS: BP 102/62, Pulse 111 Resp 16-20 O2 sat 82 on RA O2 sat 90 on 2L Oxygen BLOOD GAS 03/07: ABG pH 7.55 pCO2 57.0 pO2 56.6 03/08 (Wei) oximetry is 93. She is on 3 L a minute oxygen She is more hypoxic than her baseline, but I suspect this is left over atelectasis from her prolonged hemidiaphragm elevation and her bowel obstruction. RISKS: H&P: Bowel Obstruction. COPD. 03/05: Morbid obesity TREATMENT: Order 03/05: Resp: O2 to keep sats 92% Pulmonary Consult 03/05 MAR: Order 03/07-: Duoneb q4 hr Thank you, Dora (This form is maintained as a part of the permanent medical record) 2014 [employer]. All Rights Reserved Dora Schwab RN, BSN [email or web address] Office: [phone] [facility]
--- NOTE | 2019-03-08 16:20 | PRG ---
DATE OF SERVICE: 03/08/2019 SUBJECTIVE: Ms. Garcia is doing well today. She has tolerated her diet. She has been hep-locked. She was seen by Dr. Carvajal, and her pulmonary status is stable to go home. She is on home oxygen. Has her home medications. She has OxyContin at home, it is managed by her Pain Management physician. She has had multiple bowel movements and passing flatus, and tolerating a regular diet. OBJECTIVE: LUNGS: Clear to auscultation. No wheezing. CARDIAC: Regular rate and rhythm without murmur or gallop. ABDOMEN: Soft, nontender. Surgical laparoscopic wounds in lateral left abdomen are well healed. EXTREMITIES: Unremarkable. ASSESSMENT AND PLAN: Resume gastrointestinal function. Resolve bowel obstruction. Home today. Remove central line. Diet and activity as tolerated. Followup in my office in 2 to 3 weeks. Encouraged tobacco cessation. Job ID: [id number]
--- NOTE | 2019-03-09 05:39 | DIS ---
DATE OF ADMISSION: 03/05/2019 DATE OF DISCHARGE: 03/08/2019 DISCHARGE DIAGNOSES: 1. Small-bowel obstruction secondary to adhesions. 2. Chronic obstructive pulmonary disease. 3. Ongoing tobacco abuse. 4. Hypertension. 5. Chronic back pain with pain managed by pain management physician, OxyContin at home. ALLERGIES: CODEINE, PENICILLIN, MUSHROOMS. HOME MEDICATIONS: 1. Zanaflex. 2. Klonopin. 3. Zantac. 4. Ventolin inhaler. 5. Zoloft. 6. Lyrica. 7. Asmanex twist inhaler. 8. Levothyroxine. 9. Synthroid. 10. DuoNeb. 11. OxyContin pain management. 12. Dicyclomine. 13. Flexeril. 14. Cefdinir. 15. Belbuca. PAST SURGICAL HISTORY: Laparoscopic cholecystectomy, appendectomy, two C-sections, subsequent total hysterectomy, lumbar surgery with failed back and chronic pain, laparoscopic adhesiolysis, freeing intestinal adhesions from laparoscopic application, preperitoneal Proceed 15 x 20 cm mesh covering 3 cm hernia defects, periumbilical incisional hernias. Dr. Solis performed prior back surgeries. SOCIAL HISTORY: Ongoing tobacco abuse. HISTORY OF PRESENT ILLNESS: This is a 68-year-old female has developed a several-day history of abdominal pain. She had nausea, vomiting, distention. She presented in the emergency room, was noted to have acute kidney injury with BUN and creatinine of 54 and 2.1. Sodium 131. She was admitted to the hospital with an NG tube in place. CAT scan having demonstrated a bowel obstruction. Her outputs from her NG tube were copious 700 mL to 3.9 L copious. She underwent a small bowel follow-through the next day, which revealed a complete bowel obstruction. The same day, she was taken to the operating room for a laparoscopic adhesiolysis, identifying the suspect offending adhesion with constriction of the small bowel and dilatation of small bowel. This was released and some adhesiolysis was performed, but her lesions were too extensive to take down all of them laparoscopically and would require an open operation. Considering her severe COPD, ongoing tobacco abuse and baseline saturations in the high 70s and low 80s with home oxygen, it was felt that since we identified what is suspect offending adhesion that laparotomy would not be undertaken. Postoperatively, she did well. She had high NG tube out for the first 24 hours. The next day, we removed her NG tube. She tolerated her liquids and then a regular diet prior to discharge. She resumed her home medication, diet and activity as tolerated, tobacco cessation encouraged. Dr. Carvajal saw this hospitalization. She agreed that she was fit for discharge. Follow up in my office in 2 to 3 weeks. Job ID: [id number]
--- NOTE | 2019-03-09 13:34 | EKG ---
Test Reason : Blood Pressure : / mmHG Vent. Rate : 110 BPM Atrial Rate : 110 BPM P-R Int : 120 ms QRS Dur : 130 ms QT Int : 408 ms P-R-T Axes : 066 135 047 degrees QTc Int : 552 ms Sinus tachycardia Possible Left atrial enlargement Right bundle branch block Abnormal ECG When compared with ECG of 05-MAR-2019 12:40, (Unconfirmed) No significant change was found Confirmed by DR. Ralph TANNER ([id number]) on 03/09/2019 1:34:11 PM Referred By: TRUMAN Confirmed By:DR. Ralph TANNER
== END 2019-03-08 13:50 | disposition home or self-care (01) | DRG 336 ==
LOC: ERS 11:31 → SJJU 14:35
PROVIDERS: ADMIT Specialist; ATTEND Specialist
PROC: 0DN84ZZ Release Small Intestine, Percutaneous Endoscopic Approach (ICD-10-PCS; principal; 2019-03-06)
DX: K56.51 Intestinal adhesions [bands], with partial obstruction (principal); N17.9 Acute kidney failure, unspecified; E87.3 Alkalosis; E86.0 Dehydration; M79.7 Fibromyalgia; E66.01 Morbid (severe) obesity due to excess calories; J44.9 Chronic obstructive pulmonary disease, unspecified; G62.9 Polyneuropathy, unspecified; E03.9 Hypothyroidism, unspecified; F41.9 Anxiety disorder, unspecified; J98.01 Acute bronchospasm; F17.210 Nicotine dependence, cigarettes, uncomplicated; E87.6 Hypokalemia; Z88.5 Allergy status to narcotic agent; Z88.0 Allergy status to penicillin; Z79.899 Other long term (current) drug therapy; Z79.51 Long term (current) use of inhaled steroids; Z90.49 Acquired absence of other specified parts of digestive tract; Z90.710 Acquired absence of both cervix and uterus; Z68.36 Body mass index [BMI] 36.0-36.9, adult
CPT/HCPCS: 36415; 71045; 74018; 74022; 74176; 74250; 80053; 82274; 82805; 83690; 84484; 85025; 93005; 93010; 94640; 96361; 96374; 96375; A4216; C9113; J0131; J0670; J1120; J1200; J1650; J1885; J2001; J2185; J2270; J2405; J2704; J3010; J3480; J3490; J7050; J7120; J7620; J7626

== ENCOUNTER 2019-05-14 14:35 | Outpatient (CLI) | payer MEDICARE ==
--- NOTE | 2019-05-14 16:04 | ULT ---
THYROID ULTRASOUND: 05/14/19 HISTORY: Neck mass. FINDINGS: The left lobe of the thyroid gland demonstrates a normal sonographic appearance and measures 3.9 cm x 1.3 cm x 1.6 cm. The thyroid isthmus measures 0.3 cm in AP dimension which is within normal limits. The right lobe of the thyroid gland measures 4 cm x 2.4 cm x 1.9 cm. There is a heterogeneous cystic but predominantly solid hypoechoic nodule in the mid portion right lobe of the thyroid gland which me asures 1.9 cm x 1.4 cm x 1.4 cm. This nodule demonstrates smooth margins. No obvious calcification is seen within this nodule. IMPRESSION: TI-RADS level IV, moderately suspicious nodule. According to recommendations, fine needle aspiration of this nodule is recommended. POS: AFSANEH
== END 2019-05-14 14:36 | disposition home or self-care (01) ==
LOC: BICULT 14:35
PROVIDERS: ATTEND Family Medicine
DX: R22.1 Localized swelling, mass and lump, neck (principal)
CPT/HCPCS: 76536

== ENCOUNTER 2019-06-05 12:26 | Day surgery (SDC) | payer MEDICARE ==
[2019-06-04 15:07] VITALS: BMI 43.9
[2019-06-05] MEDS ORDERED: Sodium Bicarbonate 2.5 MEQ/5 ML VIAL ONE (12:35)
[2019-06-05] MEDS ORDERED: Lidocaine 1% PF 5 ML VIAL ONE (12:35)
[2019-06-05 14:38] VITALS: BP 130/68; TEMP 98.2
--- NOTE | 2019-06-05 15:40 | ULT ---
Exam: Ultrasound guided fine-needle aspiration Comparison 05/14/2019 FINDINGS: Successful 25-gauge fine-needle aspiration of a predominantly heterogeneous cystic nodule i n the right thyroid lobe. Final pathologic diagnosis pending TECHNIQUE: Consent obtained performing ultrasound guided fine-needle aspiration of a heterogeneous no dule in the right thyroid lobe. Currently, nodule measures 1.4 x 1.3 x 2.1 cm. There are areas of central cystic degeneration. Skin was prepped and draped sterile fashion. 1% lidocaine, buffered with sodium bicarbonate was used for local anesthesia. Under ultrasound guidance, four 25-gauge fine-needle aspirations were performed. Patient tolerated the procedure well. No immediate or postpro cedure complication IMPRESSION: Successful fine-needle aspiration. Final pathologic diagnosis pending
== END 2019-06-05 13:50 | disposition home or self-care (01) ==
LOC: ULT 12:26
PROVIDERS: ATTEND Otolaryngology Plastic Surgery within the Head & Neck
DX: E04.1 Nontoxic single thyroid nodule (principal); E78.5 Hyperlipidemia, unspecified; J44.9 Chronic obstructive pulmonary disease, unspecified; F17.200 Nicotine dependence, unspecified, uncomplicated; K21.9 Gastro-esophageal reflux disease without esophagitis; K86.1 Other chronic pancreatitis; K52.9 Noninfective gastroenteritis and colitis, unspecified; Z88.0 Allergy status to penicillin; Z88.5 Allergy status to narcotic agent; Z91.018 Allergy to other foods; Z91.041 Radiographic dye allergy status
CPT/HCPCS: 60100; 76942; 88173; J2001

== ENCOUNTER 2019-10-02 13:35 | Outpatient (CLI) | payer MEDICARE, OTHER ==
--- NOTE | 2019-10-02 14:23 | ULT ---
EXAM: Left lower extremity venous Doppler HISTORY: Left leg pain. FINDINGS: Grayscale, color-flow, Doppler evaluation, spectral analysis of the left lower extremity venous struc tures is performed with 2-D imaging. The left common femoral, superficial femoral, popliteal, posterior tibial, proximal greater saphenous and profunda femoral veins are imaged. There is normal luminal compressibility, flow, and augmentation in the visualized deep venous structu res of the left lower extremity. IMPRESSION: No evidence of a deep vein thrombosis in the visualized deep venous structures left lower extremity.
--- NOTE | 2019-10-02 14:50 | CT ---
CT lumbar spine without contrast: HISTORY: Low back pain. History of prior surgery. COMPARISON: 03/26/2018 FINDINGS: Vascular calcifications are again seen in the abdominal aorta and involving the iliac arteries. 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 Superior endplate compression fracture L4 vertebral body is again seen with the degree of height loss overall similar to prior exam. Remaining vertebral body heights are within normal limits, and no additional fracture is seen. Postsurgical changes related to posterior fusion of the L4-5 and L5-S1 levels are again present with bipedicular screws and posterior rods transfixing these levels. Intradiscal prosthesis at the L5-S1 level is again present. There is stable slight anterolisthesis of L4 on L5. The left L4 pedicle screw again extends into the inferior aspect of the intervertebral disc. The right L5 pedicle screw is located just lateral to the right pedicle extending into the paraspinal soft tissues. This is unchang ed. L1-2: Mild posterior osteophyte formation is again present with facet hypertrophic changes. The centr al spinal canal and neural foramina are patent. L2-3: Mild bilateral facet hypertrophic changes are present. There is no significant disc bulge or di sc herniation. Central spinal canal and neural foramina are patent. L3-4: There is a mild disc osteophyte complex with facet hypertrophic changes. Mild to moderate centr al canal narrowing is present. Central canal narrowing due to appear slightly increased when compared to the prior exam. Mild bilateral neural foraminal narrowing is present. L4-5: Slight disc bulge is present with facet hypertrophic changes. Findings result in mild central c anal narrowing. No significant neural foraminal narrowing is appreciated. L5-S1: There is loss of intervertebral disc height. There is trace anterolisthesis of L5 on S1 simila r to prior exam. Left laminectomy defect is present at this level. There is no significant central canal narrowing, but there is suggestion of moderate bilateral neural foraminal narrowing. IMPRESSION: 1. Multilevel postoperative and degenerative changes of the lumbar spine unchanged from prior exam. T here is a stable compression fracture superior endplate of the L4 vertebral body. 2. Left pedicle screw at L4 extends into the inferior margin of the intervertebral disc, and the righ t sided pedicle screw at L5 is located superior and lateral to the pedicle anteriorly.
--- NOTE | 2019-10-02 15:34 | RAD ---
LUMBAR SPINE FOUR VIEWS: 10/02/19 HISTORY: Post laminectomy syndrome. FINDINGS/IMPRESSION: There are postop changes of posterior spinal fusion with bilateral pedicle screws at L4, L5, S1 level s in good position and alignment. Intradiscal prosthesis is present at L5-S1 level. There is minimal anterolisthesis of L4 over L5 and L5 over S1 vertebrae. No compression fracture or bony destruction i s seen. No perihardware lucency is identified to suggest loosening. No change in alignment is noted o n flexion or extension. POS: BOBO
== END 2019-10-02 13:36 | disposition home or self-care (01) ==
LOC: BICCT 13:35
PROVIDERS: ATTEND Family Medicine
DX: M79.605 Pain in left leg (principal); M96.1 Postlaminectomy syndrome, not elsewhere classified; M47.816 Spondylosis without myelopathy or radiculopathy, lumbar region; M48.56XA Collapsed vertebra, not elsewhere classified, lumbar region, initial encounter for fracture; Z98.890 Other specified postprocedural states
CPT/HCPCS: 72110; 72131